=== PATIENT | female | born 1995 | race Caucasian/White ===

== ENCOUNTER 2019-06-06 13:15 | Outpatient (CLI) | payer BC, SELFPAY ==
[2019-06-06 14:06] VITALS: BMI 28.0
--- NOTE | 2019-06-07 08:52 | OB.TRI.NOTE ---
History of Present Illness Date of Service: 06/06/19 Was patient seen by the physician?: No Reason For Visit: R/O LABOR Date of Service: 06/06/19 Final DAFNE: 06/28/19 Final DAFNE Source: LMP Gestational age: 36 6/7 weeks Allergies No Known Allergies Allergy (Verified 03/18/17 23:09) NST - FHR Rate Baby A Baseline: 125 Variability:: Moderate Accelerations:: 15 x 15 Decelerations:: None NST Reactive:: Yes, Appropriate for gestational age FHR Category:: Category I Uterine Activity:: Irritability, no regular contractions Impression/Plan 24-year-old 2 para 1 at 36-6/7 weeks for threatened labor. Patient was reassured that she is not in active labor. Discharged home with routine instructions. Follow-up in the office as scheduled or as needed.
== END 2019-06-06 14:35 | disposition home or self-care (01) ==
LOC: WPOUT 13:45 → WP 13:46
PROVIDERS: Family Provider Family Medicine; PCP Family Medicine; Referring Provider Obstetrics & Gynecology; Visit Provider Obstetrics & Gynecology
DX: O60.03 Preterm labor without delivery, third trimester (principal); Z3A.36 36 weeks gestation of pregnancy
CPT/HCPCS: 59025; 59050; 99218; G0378

== ENCOUNTER 2019-06-07 17:04 | Outpatient (CLI) | payer BC, SELFPAY ==
[2019-06-06 14:06] VITALS: BMI 28.0
[2019-06-07 17:41] VITALS: BMI 26.9
[2019-06-07 18:03] LABS: Mucous, Urine 0 SEEN /hpf (<or=2+)
[2019-06-07 18:04] LABS: Absolute Lymphocyte Count 0.86 X10^3/uL (0.83-4.51); Basophil# 0.01 X10^3/uL; Basophil% 0.1 % (0-1); Hematocrit 32.6 % (37-47); Hemoglobin 10.8 g/dL (12.0-15.0); Lymphocyte # 0.86 X10^3/ul (4.0); Lymphocyte % 7.2 % (19-41); Mean Corp Hgb Conc 33.1 g/dL (32-36); Mean Corpuscular Hgb 29.6 pg (27.0-32.0); Mean Corpuscular Volume 89.3 fL (81-99); Mean Platelet Vol. 9.6 fl (6.2-12.0); Monocyte# 0.97 X10^3/uL; Monocyte% 8.1 % (0-10); NRBC Flagged by Analyzer 0 % (0-5); Neutrophil % 83.8 % (47-70); Platelet Count 122 K/mm3 (150-450); RBC Distribution Width CV 14.3 % (11.6-14.6); RBC Distribution Width SD 46.7 fl (35.1-43.9); Red Blood Count 3.65 M/mm3 (4.2-5.4); White Blood Count 11.9 K/mm3 (4.4-11.0)
[2019-06-07 18:13] LABS: Color, Urine Yellow (Yellow); Glucose, Dipstick Normal (Normal); Leukocyte Esterase-Dipstick 500 /ul (Negative); Nitrite-Dipstick Positive (Negative); Occult Blood-Urine 25 /ul (Negative); Protein-Dipstick 100 mg/dl (Negative); Urine Bilirubin Dipstick Negative (Negative); Urine Clarity Cloudy (Clear); Urine Urobilinogen Normal (Normal)
[2019-06-07 18:15] LABS: Ketone-Dipstick 150 mg/dl (Negative)
[2019-06-07 18:21] LABS: Bacteria 1+ /hpf (None Seen); Red Blood Cells-Urine 0-5 SEEN /hpf (0-5); Squamous Epithelial Cells - UA 10-25 SEEN /hpf (5-10); White Blood Cells >100 SEEN /hpf (0-5)
[2019-06-07] MEDS: Lactated Ringers 1,000 ML 999 ML IV (19:25)
--- NOTE | 2019-06-09 07:26 | OB.TRI.HP_ITS ---
History of Present Illness Date of Service: 06/07/19 Was patient seen by the physician?: No Reason For Visit: R/O PYLEO Date of Service: 06/07/19 Final DAFNE: 06/28/19 Final DAFNE Source: LMP Gestational age: 37 Weeks and 2 Days Allergies No Known Allergies Allergy (Verified 06/07/19 19:01) Laboratory Studies: Laboratory Tests 06/07/19 06/07/19 Range/Units 17:45 17:30 WBC 11.9 H (4.4-11.0) K/mm3 RBC 3.65 L (4.2-5.4) M/mm3 Hgb 10.8 L (12.0-15.0) g/dL Hct 32.6 L (37-47) % MCV 89.3 (81-99) fL MCH 29.6 (27.0-32.0) pg MCHC 33.1 (32-36) g/dL RDW Std Deviation 46.7 H (35.1-43.9) fl RDW Coeff of Radha 14.3 (11.6-14.6) % Plt Count 122 L (150-450) K/mm3 MPV 9.6 (6.2-12.0) fl Immature Gran % (Auto) 0.800 (0.0-0.9) % Neut % (Auto) 83.8 H (47-70) % Lymph % (Auto) 7.2 L (19-41) % [place] % (Auto) 8.1 (0-10) % Eos % (Auto) 0.0 (0-5) % Baso % (Auto) 0.1 (0-1) % Absolute Neuts (auto) 10.0 H (2.0-7.7) X10^3/uL Absolute Lymphs (auto) 0.86 (0.83-4.51) X10^3/uL Nucleated RBC % 0 (0-5) % Urine Color Yellow (Yellow) Urine Clarity Cloudy (Clear) Urine pH 6.0 (5.0 - 8.0) Ur Specific [place] 1.020 (1.002-1.030) Urine Protein 100 H (Negative) mg/dl Urine Glucose (UA) Normal (Normal) mg/dl Urine Ketones 150 H (Negative) mg/dl Urine Occult Blood 25 H (Negative) /ul Urine Nitrite Positive H (Negative) Urine Bilirubin Negative (Negative) mg/dL Urine Urobilinogen Normal (Normal) mg/dl Ur Leukocyte Esterase 500 H (Negative) /ul Urine RBC 0-5 SEEN (0-5) /hpf Urine WBC >100 SEEN (0-5) /hpf Ur Squamous Epith Cells 10-25 SEEN (5-10) /hpf Urine Bacteria 1+ (None Seen) /hpf Urine Mucus 0 SEEN (<or=2+) /hpf NST - FHR Rate Baby A Baseline: 150 Variability:: Moderate Accelerations:: 15 x 15 Decelerations:: None NST Reactive:: Yes FHR Category:: Category I Uterine Activity:: irregular Impression/Plan @ 37.2 wks with Back pain, +UTI 1) 2g rocephin 2) Ivf 3) U culture 4) CBC 5) dc home on keflex 6) afebrile during visit
== END 2019-06-07 21:45 | disposition home or self-care (01) ==
LOC: WPOUT 17:07 → WP 17:08
PROVIDERS: Family Provider Family Medicine; PCP Family Medicine; Referring Provider Obstetrics & Gynecology; Visit Provider Obstetrics & Gynecology
DX: O23.43 Unspecified infection of urinary tract in pregnancy, third trimester (principal); M54.9 Dorsalgia, unspecified; Z3A.37 37 weeks gestation of pregnancy
CPT/HCPCS: 96361; 96365; 36415; 59025; 59050; 81001; 85025; 87086; 87088; 87186; 99218; J7120; G0378; J0696

== ENCOUNTER 2019-07-06 06:50 | Inpatient (IN) | payer BC, SELFPAY ==
[2019-07-06 07:17] VITALS: BMI 27.1
[2019-07-06] MEDS: Lactated Ringers 1,000 ML 150 ML IV (07:30)
[2019-07-06 07:57] LABS: Absolute Lymphocyte Count 1.42 X10^3/uL (0.83-4.51); Absolute Neutrophil Count 5.4 X10^3/uL (2.0-7.7); Basophil# 0.02 X10^3/uL; Basophil% 0.3 % (0-1); Eosinophil# 0.03 X10^3/uL; Eosinophils% 0.4 % (0-5); Hematocrit 32.5 % (37-47); Hemoglobin 10.5 g/dL (12.0-15.0); Lymphocyte # 1.42 X10^3/ul (4.0); Lymphocyte % 19.2 % (19-41); Mean Corp Hgb Conc 32.3 g/dL (32-36); Mean Corpuscular Hgb 28.7 pg (27.0-32.0); Mean Corpuscular Volume 88.8 fL (81-99); Mean Platelet Vol. 9.8 fl (6.2-12.0); Monocyte# 0.47 X10^3/uL; Monocyte% 6.4 % (0-10); NRBC Flagged by Analyzer 0 % (0-5); Neutrophil # 5.39 X10^3/uL (2.7-7.7); Platelet Count 134 K/mm3 (150-450); RBC Distribution Width CV 13.6 % (11.6-14.6); RBC Distribution Width SD 44.5 fl (35.1-43.9); Red Blood Count 3.66 M/mm3 (4.2-5.4); White Blood Count 7.4 K/mm3 (4.4-11.0)
[2019-07-06] MEDS: Oxytocin 30 units/NS 500 ml 30 UNITS/500 ML IV.SOLN IV (08:00)
--- NOTE | 2019-07-06 08:49 | PCM.HP.OB ---
History Date of Admission: 07/06/19 Final DAFNE: 06/28/19 Final DAFNE Source: LMP Gestational age: 41 Weeks and 1 Days History of this : This is a 24 year-old, G [], P [], at 41 weeks gestational age. Allergies No Known Allergies Allergy (Verified 06/07/19 19:01) Home Medications: Home Medications Ferrous Sulfate [Iron] 325 mg PO BID 03/03/17 Vit No.130/Iron/Folic [ Tablet] 1 each PO DAILY 03/03/17 Smoking Status: Former smoker Alcohol: None Number of Fetus(es): 1 NST - FHR Rate Baby A Baseline: 150 Variability:: Moderate Accelerations:: 15 x 15 Decelerations:: Variable NST Reactive:: Yes Uterine Activity:: irritability History Past Pregnancies: Past Pregnancies Delivery Date Name GA/Weeks Outcome Route Weight Gender Labor Length Anesthesia Delivery Location Provider FOB Labs: See [facility] H&P Physical Exam General: Alert, Oriented x3 Abdomen: Soft, Non Tender, Non-Distended, Gravid Neurological: Cranial nerves II-XII grossly intact BUILDING OFFICIAL: Normal external genitalia Estimated gestational size: Appropriate for gestational size Presentation: Cephalic Cervix Dilation (cm): 2 Station: -2 Effacement (%): 70 Assessment/Plan This is a 24 year-old, G 2, P 1001, at 41&2 weeks gestational age. Admit to L&D Induction - on pitocin GBS negative EFW - less than 4500g, patient with adequate pelvis Pain - epidural if desired Routine care
--- NOTE | 2019-07-06 12:47 | PCM.PN.BLA ---
Progress Note S: Patient comfortable with ctxs O: cvx 4/80/-2 AROM clear fluid fhts - 115 with mod variability, accels tocos - Q 2-3 min A&P: continue pitocin
[2019-07-06] MEDS: Nalbuphine 10 MG/ML Ampul IV (14:57)
[2019-07-06] MEDS: Oxytocin 30 units/NS 500 ml 30 UNITS/500 ML IV.SOLN 334 UNITS IV (15:12)
--- NOTE | 2019-07-06 15:40 | PCM.OPRPT ---
Vaginal Delivery Maternal Presentation: Medically Indicated Induction Method of Induction: Pitocin, Amniotomy Medical Reason for Induction: Post term Amniotic Membrane Rupture Type: Artificial Amniotic Fluid Description: Clear Final DAFNE: 06/28/19 Gestational age: 41 Weeks and 1 Days Date of Procedure: 07/06/19 Pre-Operative Diagnosis: Post-dates Post-Operative Diagnosis: Same Surgery/ Procedure Performed: Spontaneous Vaginal Delivery Type of Anesthesia: Local with 1% lidocaine Description of Procedure: Patient in stirrups when c/c/+2. She pushed to deliver head. Shoulders and body easily followed. Infant placed on maternal abdomen where 3VC clamped & cut. Placenta delivered with gentle traction. Good uterine tone obtained. Presentation: JENNYFER Placental Delivery Description: Expressed Placenta Disposition: [facility] Cord Vessel Description: 3 Vessels Cord Entanglement: None Estimated Blood Loss: 350ml A gender: Male - Daniel (1 minute): 8 (5 minute): 9 Episiotomy Description: None Laceration: 1st degree - vaginal - reparied with 3-0 vicryl Medications given after delivery: IV Pitocin Complications: None
[2019-07-06 19:50] VITALS: BP 109/64; PULSE 77; RESP 16; TEMP 36.3
[2019-07-06] MEDS: Acetaminophen 500 MG Tablet 1000 MG PO (22:26)
[2019-07-07 00:20] VITALS: BP 103/71; PULSE 68; RESP 16; TEMP 36.7
[2019-07-07 04:55] VITALS: BP 97/61; PULSE 74; RESP 16; TEMP 37.1
[2019-07-07 08:15] VITALS: BP 100/55; PULSE 83; RESP 16; TEMP 37
--- NOTE | 2019-07-07 09:01 | PCM.PN.OB ---
Subjective: Pain well controlled. Average lochia. No complaints. - Physical Exam General: Alert, Cooperative, No apparent distress Vital Signs Temp Pulse Resp BP 98.8 F 74 16 97/61 07/07/19 04:55 07/07/19 04:55 07/07/19 04:55 07/07/19 04:55 Oxygen Delivery Method Room Air Weight: 71.668 kg Body Mass Index (BMI) 27.1 Finger Stick Blood Glucose 98 Intake and Output for Last 24 Hours 07/05/19 07/06/19 07/07/19 23:59 23:59 23:59 Intake Total 1224.61 / 1224.61 Output Total 1200 / 1200 800 / 800 Balance 24.61 / 24.61 -800 / -800 Laboratory Tests Past 24 Hrs 07/06/19 07:30 Blood Type A POSITIVE Antibody Screen NEGATIVE Medical Necessity - Tobacco Use Smoking Status: Former smoker Assessment/Plan day #1 post vaginal delivery. is breast-feeding and doing well. Patient would like to be discharged home today if okay with pediatrics
--- NOTE | 2019-07-07 09:03 | DCINST_ITS ---
Discharge Diet: No Restrictions Discharge Activity: Return to Normal Activity, May not drive while taking narcotic pain medications., May Shower May resume sexual activity in: 4-6 weeks Additional Activity Instructions:: Nothing in the vagina for 4-6 weeks. You may return to work/school in 6 weeks. Call your doctor if your incision/area has: Continuous Slow Oozing, Sudden Increased Bleeding, Increased Pain/ Swelling, Increased Redness, Foul Smelling Discharge Additional Instructions: If you experience any of the following, contact your healthcare provider. * Bleeding that soaks a pad every hour for 2 hours * Fever 100.4 or higher * Unrelieved incision or abdominal pain * Swelling, redness, discharge or bleeding from your incision or episiotomy site * Your incision begins to separate * Problems urinating (including inability to urinate or burning while urinating). * Visual changes * Severe headache * Flu-like symptoms * Pain or redness in one of both of your breasts * Pain, warmth, tenderness or swelling in your legs, especially the calf area * Frequent nausea and vomiting * Symptoms of depression or anxiety If you experience any of the following, call 911 or go to the nearest Emergency Room. * Chest pain * Problems breathing * Seizure activity * Partial or complete paralysis of a body part, slurred speech, weakness or drooping of the face, or a sudden inability to walk or hold your balance Allergies/Adverse Reactions: Allergies No Known Allergies Allergy (Verified 06/07/19 19:01) Medications to take at Discharge Ferrous Sulfate [Iron] 325 mg PO BID 03/03/17 Vit No.130/Iron/Folic [ Tablet] 1 each PO DAILY 03/03/17 Ibuprofen [Motrin] 600 mg PO Q6H PRN #60 tab 07/07/19 The following prescriptions were given: Ibuprofen [Motrin] 600 mg PO Q6H PRN #60 tab PRN Reason: Pain Transmission Status: Pending to [facility] Please Follow Up With: Jennifer Maria MD - [phone] When: Call to make an appointment with your doctor in 1-2 weeks if needed and 6 weeks Primary Care Physician: Betty Donnelly MD [Primary Care Provider] - Test Results: Test results from this visit will be discussed in further detail at your follow- up appointment, if applicable.
[2019-07-07] MEDS: Ibuprofen 600 MG Tablet PO (10:25)
[2019-07-07 12:15] VITALS: BP 105/55; PULSE 73; RESP 18; TEMP 36.8
[2019-07-07 16:00] VITALS: BP 102/56; PULSE 78; RESP 16; TEMP 36.6
== END 2019-07-07 19:10 | disposition home or self-care (01) | DRG 807 ==
PROVIDERS: Admitting Provider Obstetrics & Gynecology; Family Provider Family Medicine; PCP Family Medicine; Referring Provider Obstetrics & Gynecology; Visit Provider Obstetrics & Gynecology
DX: O48.0 Post-term pregnancy (principal); O76 Abnormality in fetal heart rate and rhythm complicating labor and delivery; O70.0 First degree perineal laceration during delivery; Z87.891 Personal history of nicotine dependence; Z3A.41 41 weeks gestation of pregnancy; Z37.0 Single live birth
CPT/HCPCS: 59025; 59050; 85025; 86850; 86900; 86901; 99218; J7120; G0378

== ENCOUNTER 2021-01-30 07:47 | Day surgery (SDC) | payer BC, SELFPAY ==
--- NOTE | 2021-01-23 08:52 | HP.PCM_ITS ---
History and Physical Date of Admission: 01/30/21
--- NOTE | 2021-01-23 08:52 | PCM.HP.BLA ---
History and Physical Date of Admission: 01/30/21
--- NOTE | 2021-01-23 08:57 | PCM.HP.BLA ---
History and Physical Date of Admission: 01/30/21 ?
--- NOTE | 2021-01-23 10:17 | HP.PCM_ITS ---
History and Physical Pre-Op History and Physical ? HPI: The patient is a 25 year old female presenting for discussion regarding salpingectomy.? Patient reports has 2 living children and does not desire any future childbearing.? Patient currently has the ParaGard IUD and would like it removed with permanent sterilization to follow. ? She is scheduled for laparoscopic Bilateral salpingectomy, for desires sterilization? on 01/30/21.? ?Procedure discussed along with risks, benefits and complications.? Other alternatives discussed for management. Consent form signed? Yes.? PAST MEDICAL HISTORY PAST MEDICAL HISTORY DiagnosisDate ?Anemia? ?Congenital heart defect? 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 PAST SURGICAL HISTORY PAST SURGICAL HISTORY ProcedureLateralityDate ?APPENDECTOMY ? ?INSERTION OF IUD ? CURRENT MEDICATIONS Current Outpatient Medications MedicationSigDispenseRefill ?ibuprofen (MOTRIN) 600 mg tabletTake 1 tablet by mouth every 6 hours as needed for Pain.30 tablet0 ?simethicone, chewable (MYLICON) 80 mg chewable tabletTake 1 tablet by mouth every 6 hours as needed.30 tablet0 ?compr.stocking,thigh,reg,small (COMP.STOCKING,THIGH,REG,SMALL) miscApply thigh high stocking to both Lower extremities, wear throughout day , off at night.1 Each0 ?copper (PARAGARD) 380 square mm intrauterine device1 Intra Uterine Device by INTRAUTERINE route as directed.1 Intra Uterine Device0 ? No current facility-administered medications for this visit. ? ? ALLERGIES: Patient has no known allergies. ? PERSONAL HISTORY:? SOCIAL HISTORY Social History ? Tobacco Use ?Smoking status:Former Smoker ? Years:5.00 ? Quit date:09/20/2015 ? Years since quittin.3 ?Smokeless tobacco:Never Used Vaping Use ?Vaping Use:Never used Substance Use Topics ?Alcohol use:No ?Drug use:Never ?? ? FAMILY HISTORY:? FAMILY HISTORY FAMILY HISTORY? ProblemRelationAge of Onset ?PsychiatryMother? ?ThyroidMother? ?No Known ProblemsFather? ?No Known ProblemsSister? ?No Known ProblemsBrother? ?No Known ProblemsBrother? ?LipidsMaternal Grandmother? ?ArthritisMaternal Grandfather? ?HeartMaternal Grandfather? ?StrokeMaternal Grandfather? ?other (dementia)Maternal Grandfather? ?Breast CancerOther? MGaunt ?Colon CancerOther? MGuncle ?No Known ProblemsPaternal Grandmother? ?No Known ProblemsPaternal Grandfather? ?No Known ProblemsDaughter? ? ? REVIEW OF SYMPTOMS: negative except as noted above ? PHYSICAL EXAMINATION: ? VITALS: Blood pressure 98/60, weight 116 lb (52.6 kg), last menstrual period 01/17/2021, currently . ? GENERAL:? The patient is well nourished, well hydrated in no acute distress.? , The patient is oriented to time, place, and person. NECK: full range of motion? GENITALIA: deferred? ? IMPRESSION: 25yo desires permanent sterilization.? ? PLAN:? ?Laparoscopic bilateral salpingectomy, IUD removal- paragard ? Pt has been counseled on risks/benefits and alternatives of surgery including but not limited to anesthesia, bleeding, infection, injury to pelvic structures including bowel, bladder, ureters and vessels.? Pt wishes to proceed with surge ry at this time. ? Covid testing reviewed ? PRE OP instructions reviewed ? POST OP meds ordered- MOTRIN and MYLICON? ? I have reviewed and updated past medical and surgical history, medications and allergies? Delia Hoffmann MD ? 5:00 PM Assessment & Plan Assessment/Plan (1) Request for sterilization: PLAN: Plan for laparoscopic salpingectomy
[2021-01-30 08:21] VITALS: BP 107/79; PULSE 71; RESP 16; TEMP 36.6; O2SAT 99
[2021-01-30 08:42] LABS: Internal QC Validated? YES +Cl - CLEAR BKGD; Pregnancy, Urine Negative Negative
[2021-01-30 08:43] LABS: Hematocrit 38.7 % (37-47); Mean Corpuscular Hgb 27.1 pg (27.0-32.0); Mean Corpuscular Volume 87.6 fL (81-99); Mean Platelet Vol. 8.9 fl (6.2-12.0); Platelet Count 243 K/mm3 (150-450); RBC Distribution Width CV 12.4 % (11.6-14.6); RBC Distribution Width SD 40.1 fl (35.1-43.9); Red Blood Count 4.42 M/mm3 (4.2-5.4); White Blood Count 4.8 K/mm3 (4.4-11.0)
[2021-01-30] MEDS: Lactated Ringers 1,000 ML 100 ML IV ×2 (08:43→10:16)
--- NOTE | 2021-01-30 09:35 | FALS_PTH ---
PATIENT: JR LASSITER LOC: [facility] [place] U#:[id number] AGE/SX: 25/F ROOM: RE01/30/[address]: Dr. Delia Gayle, MDDOB: 1995 BED: DIS: 01/30/2021 SPEC #: [id number] RECD: 01/30/21 10:37 STATUS: ALANNAH RAI #: [id number] ROSEMARY: 01/30/21 09:[address]: Delia Gayle DEPT: SURGICAL PATHOLOGY RECD BY: Linda Arellano ENTERED: 01/30/21 11:26 SP TYPE: FALL TUBES OTHR DR: Dr. Betty Donnelly MD Tissues: Fallopian tube Procedures: Surgery Specimen Level II HEADER OPERATION: Laparoscopic salpingectomy, removal IUD PRE-OP DIAGNOSIS: Sterilization TISSUE SUBMITTED: Bilateral fallopian tubes MICROSCOPIC DIAGNOSIS Bilateral fallopian tubes, salpingectomy: Bilateral fallopian tubes including fimbrial ends, no pathologic diagnosis. A paratubal cyst. [place]:sabina 01/31/2021 MICROSCOPIC DESCRIPTION Slides are reviewed. GROSS DESCRIPTION Received in fixative is one container labeled with the patient's name and designated bilateral fallopian tubes. The specimen consists of bilateral fallopian tubes including fimbrial ends. One fallopian tube measures 6.5 cm in length and 0.5 cm in diameter. The second fallopian tube is received in two pieces and measures 5.5 cm in length and 0.4 cm in diameter. The fallopian tubes are not identified as right or left. Sections reveal unremarkable cut surfaces. Service Or Work Dispatcher Chief sections are submitted in two cassettes as follows: 1 - intact fallopian tube, 2 - fallopian tube received in two pieces. / [place]:sabina 01/30/21 TC:5 CPT: 49973 x2
[2021-01-30] MEDS: Bupivacaine Mpf 0.5% 30 ML VIAL (09:50)
--- NOTE | 2021-01-30 10:08 | OP.PCM_ITS ---
Problems Associated Problem List Diagnoses (1) Request for sterilization: (2) IUD (intrauterine device) in place: Report of Operation Date of Procedure: 01/30/21 Pre-Operative Diagnosis: desires sterilization, IUD in place Post-Operative Diagnosis: Same Surgery/Procedure Performed:: Removal of Paraguard IUD, Laparoscopic Bilateral salpingectomy Description of Surgical Findings:: Start time: 09 end time 1007 normal ovaries, tubes and uterus. show operations supervisor: None Type of Anesthesia: General and Local Anesthesiologist: Andrew Rivas Special Medications: 0.5% marcaine Specimen's removed: Bilateral Fallopian tubes, paragard IUD Drains: None Estimated Blood Loss (mL): 5cc Fluids Replaced: 1000 Description of Procedure: After informed consent was obtained patient was taken to the operating room she was placed in supine position she was given anesthesia. She was then placed in the [facility] stirrups and she was prepped and draped in normal sterile fashion. Bladder was drained prior to the start of procedure. At this time attention was turned to the vaginal portion where weighted speculum placed at posterior fornix vagina single-tooth tenaculum was used to gently grasp the internal the cervix. IUD removed without difficulty and intact. uterus was gently sounded to approximately 8cm. Uterine manipulator was placed without difficulty. Legs then placed in parallel with the abdomen the tenaculum and the weighted speculum were removed. 2 towel clamps were placed at level of umbilicus. Marcaine was injected infraumbilical and a small incision was made. The 5 mm trocar was placed under direct visualization. CO2 gas was used to insufflate the intra-abdominal cavity. Upon inspection no gross abnormalities appreciated- the uterus tubes and ovaries appeared to be normal. At this time then the LLQ and RLQ ports were placed First Marcaine was injected and small incision was made a knife and the 5 mm trocars were placed. At this time then tubes were traced back to the fimbriated ends. Ligasure was used to coagulate and ligate along mesosalpinx bilaterally until tubes removed completely. Good hemostasis was appreciated. At this time procedure was deemed complete successful. The gas was desufflated on from the intra-abdominal cavity. The trochars were removed. Skin was closed using 4-0 Monocryl in a sumner bcutaneous fashion. Dermabond glue was placed. Instrument lap and needle counts were correct ?2. The uterine manipulator was removed. Vaginal sweep was performed it was negative. There were no complications anticipated normal postoperative course for this patient. Grafts/Implants Used: none Complications none Admit VTE Documentation VTE Present on Admission: Yes VTE Mechan Device Prophylaxis: SCD's VTE Pharm Prophylaxis ordered?: No Reason prophylaxis not ordered:: Procedure Not Indicated
--- NOTE | 2021-01-30 10:12 | PCM.DC ---
Discharge Instructions Diet Discharge Diet: No restrictions Activity Discharge Activity: May not drive while taking narcotic pain medications. and May Shower May resume sexual activity in: 2 weeks Lifting Restrictions: 20-25 lbs Dressing / Incision Call your doctor if your incision/area has: Continuous Slow Oozing, Sudden Increased Bleeding, Increased Pain/ Swelling, Increased Redness, Foul Smelling Discharge and Swelling at the incision site Call your doctor if you observe: Fever of 101 or Higher, Inability to urinate, Inability to have a bowel movement, Using more than one pad per hour and Uncontrolled pain Additional Dressing/Incision Instructions:: You have skin glue over your incision sites, do not pick off. You may shower and let the soap and water run over the incision sites and dab dry. Follow Up Care Please Follow Up With: Delia Gayle MD When: 1-2 weeks post OP if you need an appointment please call [phone] Test Results: Test results from this visit will be discussed in further detail at your follow-up appointment, if applicable. Discharge Plan Admission Attending Provider: Delia Gayle Primary Care Provider: Betty Donnelly Discharge Orders/Prescriptions Prescriptions: No Action NK RF: 0
[2021-01-30 10:24] VITALS: BP 107/79; BP 109/73; PULSE 61; RESP 16; TEMP 36.3; O2SAT 100
[2021-01-30 10:30] VITALS: BP 107/79; BP 109/80; PULSE 65; RESP 16; O2SAT 99
[2021-01-30 10:45] VITALS: BP 105/68; BP 107/79; PULSE 52; RESP 16; O2SAT 100
[2021-01-30 10:49] VITALS: BP 102/72; BP 107/79; PULSE 58; RESP 16; TEMP 36.5; O2SAT 100
[2021-01-30 11:15] VITALS: BP 107/79
== END 2021-01-30 11:21 ==
LOC: SDC 07:48 → AC 07:48
PROVIDERS: PCP Family Medicine; Referring Provider Obstetrics & Gynecology; Visit Provider Obstetrics & Gynecology
PROC: (CPT 58661; principal; 2021-01-30 09:20)
DX: Z30.2 Encounter for sterilization (principal); Z30.432 Encounter for removal of intrauterine contraceptive device; N83.8 Other noninflammatory disorders of ovary, fallopian tube and broad ligament; Z90.49 Acquired absence of other specified parts of digestive tract; Z87.891 Personal history of nicotine dependence; Z20.822 Contact with and (suspected) exposure to COVID-19
CPT/HCPCS: 00840; 58301; 58661; 81025; 85027; 87426; 88302; C9803; J7120; J2405

== ENCOUNTER → 2025-01-22 | Outpatient (CLI) | payer BC, SELFPAY ==
--- NOTE | 2025-01-22 15:06 | VDLE_ITS ---
Reason For Study Reason For Study: Bilateral leg pain RIGHT LEFT CFV is compressible, spontaneous, phasic, competent CFV is compressible, spontaneous, phasic, competent, and demonstrates normal augmentation. and demonstrates normal augmentation. FV is compressible, spontaneous, phasic, competent FV is compressible, spontaneous, phasic, competent and demonstrates normal augmentation. and demonstrates normal augmentation. POP V is compressible, phasic, and INCOMPETENT for POP V is compressible, spontaneous, phasic, competent greater than 1.0 second. and demonstrates normal augmentation. T/P Trunk is compressible. T/P Trunk is compressible. PTV is compressible. PTV is compressible. RT PerV is compressible. LT PerV is compressible. SFJ is competent and measures 0.70 cm. SFJ is INCOMPETENT and measures 0.77 cm. GSV proximal thigh measures 0.48 x 0.47 cm. GSV proximal thigh measures 0.56 x 0.60 cm. GSV at knee measures 0.38 x 0.33 cm. GSV at knee measures 0.34 x 0.38 cm. GSV INCOMPETENT throughout for greater than 0.5 GSV INCOMPETENT throughout for greater than 0.5 seconds. seconds. ASV proximal thigh is INCOMPETENT for greater than ASV prox thigh measures 0.49 cm and is very tortuous. 0.5 seconds and measures 0.33 x 0.37 cm. Wraps Extends from GSV prox thigh to lateral ankle. anterior to lateral part of knee and extends down ASV proximal calf is INCOMPETENT for greater than 0.5 calf. seconds and measures 0.26 x 0.25 cm. ASV distal thigh is INCOMPETENT for greater than 0.5 SSV at junction is competent and measures 0.32 cm. seconds and measures 0.17 x 0.19 cm. Wraps anterior Vein of Giacomini is INCOMPETENT for greater than 0.5 to diane. seconds and measures 0.15 x 0.14 cm. Varicose veins at mid calf extend from ASV distal thigh and connect to SSV distal. SSV at junction is INCOMPETENT for greater than 0.5 seconds and measures 0.90 cm. SSV tooth cutter at 18 cm above medial malleolus is INCOMPETENT for greater than 0.5 seconds. Vein of Giacomini is INCOMPETENT for greater than 0.5 seconds and measures 0.26 x 0.30 cm. Procedure This is a venous duplex using B-mode, color flow and spectral Doppler. Exam performed in department. Patient was scanned in reverse Trendelenburg position during reflux assessment. VL/Venous Duplex US - Jaime Extrem Interpretation Summary Deep veins of the bilateral lower extremities are patent and compressible segme ntally. There is no evidence of bilateral lower extremity deep vein thrombosis. The bilateral great saphenous veins appea r patent and compressible segmentally. Positive for reflux in the right popliteal vein, great saphenous vein throughou t, accessory saphenous vein in the proximal thigh, accessory saphenous vein in the distal thigh, small saphenous v ein, and Vein of Giacomini. Positive for reflux in the left saphenofemoral junction, great saphenous vein t hroughout, accessory saphenous vein in the calf, and Vein of Giacomini. Ordering Physician: Almaz Macdonald Referring Physician: Betty Donnelly M.D. Performed By: Jaycee Sanchez RVT
== END | disposition home or self-care (01) ==
LOC: CVS 15:05
PROVIDERS: PCP Family Medicine; Referring Provider Physician Assistant; Visit Provider Physician Assistant
DX: M79.604 Pain in right leg (principal); M79.605 Pain in left leg; I87.2 Venous insufficiency (chronic) (peripheral)
CPT/HCPCS: 93970

== ENCOUNTER 2025-03-01 08:18 | Day surgery (SDC) | payer BC, SELFPAY ==
[2025-02-28 08:45] VITALS: BMI 21.9
--- OUTSIDE RECORDS SUMMARY | 2025-03-01 09:05 | XMS RPT_ITS | CCD ---
Author Organization [facility] Care Team Providers Care Lunchroom Food Service Supervisor Name Role Phone Unavailable Primary Care Provider Unavailkhris e Cony SOLIZ, Dr. Betty Rizzo Primary Care Provider [phone] Dr. Betty Donnelly MD Referring Provider [phone] Amlaz Castro Attending Provider Renae PIERSON, Almaz Referring Provider Dr. Lopez Whiteside MD Attending Provider [phone] Macdonald, Almaz Attending Unavailable Betty Donnelly S Referring Unavailable Joyesika, Betty S Primary Care Unavailable Macdonald, Almaz Referring Unavailable Lopez Whiteside Attending Unavailable Jollkuldip, Betty S Primary Care Unavailable Macdonald, Almaz Referring Unavailable Macdonald, Almaz Attending Unavailable Cony, Betty S Primary Care Unavailable Lopez Whiteside Attending Unavailable Betty Donnelly Primary Care Unavailable Medications Completed/Discontinued Medications Medication Drug Class(es) Dates Sig (Normalized) Sig (Original) compr.stocking,thi gh,reg,small (COMP.STOCKING,THI GH,REG,SMALL) misc (4 sources) Start: 12-24-2020 compr.stocking,thi gh,reg,small (COMP.STOCKING,THI GH,REG,SMALL) misc Apply thigh high stocking to both Lower extremities, wear throughout day , off at night. 1 Each 0 12/24/2020 Active Comment on above: Apply thigh high sto cking to both Lower extremities, wear throughout day , off at night. copper 313 mg drug implant (1 source) Copper-containing Intrauterine Device Start: 09-06-2019 End: 02-13-2022 copper (PARAGARD) 380 square mm intrauterine device Indications: Encounter for IUD insertion 1 Intra Uterine Device by INTRAUTERINE route as directed. 1 Intra Uterine Device 0 09/06/2019 02/13/2022 Discontinued Comment on above: 1 Intra Uterine Alma ce by INTRAUTERINE route as directed. ibuprofen 600 mg oral tablet (4 sources) Nonsteroidal Anti-inflammatory Drug Start: 01-21-2021 take 1 tablet by mouth every six hours as needed ibuprofen (MOTRIN) 600 mg tablet Take 1 tablet by mouth every 6 hours as needed for Pain. 30 tablet 0 01/21/2021 Active Comment on above: Take 1 tablet by low th every 6 hours as needed for Pain. simethicone 80 mg chewable tablet (1 source) Start: 01-21-2021 End: 02-13-2022 take 1 tablet by mouth every six hours as needed simethicone, chewable (MYLICON) 80 mg chewable tablet Take 1 tablet by mouth every 6 hours as needed. 30 tablet 0 01/21/2021 02/13/2022 Discontinued Comment on above: Take 1 tablet by low th every 6 hours as needed. Problems Active Problems Problem Classification Problem Date Documented Date Episodic/Chronic Contraceptive and procreative management (2 sources) Intrauterine contraceptive device in situ; Translations: [Presence of (intrauterine) contraceptive device] 01-30-2021 Episodic Immunizations and screening for infectious disease (1 source) Patient encounter status; Translations: [Encounter for screening for human papillomavirus (HPV)] Episodic Influenza (1 source) Influenza-like illness; Translations: [Influenza due to unidentified influenza virus with other respiratory manifestations] Episodic Nonmalignant breast conditions (2 sources) Pain of breast; Translations: [Mastodynia] Episodic Other complications of (4 sources) Anemia in mother complicating , childbirth AND/OR puerperium; Translations: [Anemia complicating , third trimester] Onset: 04-24-2019 04-24-2019 Chronic Other connective tissue disease (1 source) Pain in right leg; Translations: [Pain in right leg] Onset: 01-25-2025 Episodic Other diseases of veins and lymphatics (1 source) Vascular insufficiency; Translations: [Venous insufficiency (chronic) (peripheral)] 12-29-2024 Episodic Other diseases of veins and lymphatics (1 source) Venous insufficiency (chronic) (peripheral); Translations: [Venous insufficiency (chronic) (peripheral)] Onset: 01-08-2025 Episodic Other screening for suspected conditions (not mental disorders or infectious disease) (1 source) Cancer cervix screening status; Translations: [Encounter for screening for malignant neoplasm of cervix] Episodic Varicose veins of lower extremity (4 sources) Varicose veins of lower extremity; Translations: [Varicose veins of unspecified lower extremity with pain] Onset: 01-08-2025 12-29-2024 Episodic Past or Other Problems Problem Classification Problem Date Documented Da te Episodic/Chronic Other complications of (4 sources) Nausea and vomiting; Translations: [Vomiting of , unspecified] Onset: 11-24-2018 11-24-2018 Episodic Residual codes; unclassified (4 sources) FH: Congenital heart disease; Translations: [Family history of other congenital malformations, deformations and chromosomal abnormalities] Onset: 08-06-2016 11-24-2018 Episodic Residual codes; unclassified (4 sources) History of exposure to lead; Translations: [Contact with and (suspected) exposure to lead] Onset: 11-24-2018 11-24-2018 Episodic Results Test Name Value Interpretation Reference Range Facil ity Venous Duplex US - Jaime Extre mon 01-22-2025 Venous Duplex US - Jaime Extrem [facility] [address] [place] [address] Venous Duplex US - Jaime Extrem 01/22/25 1509 MR#: [id number] Acct: [id number] Name: LASSITERNOHELIA E Rep #: [id number] : 1995 29 From: Lopez Whiteside MD Attending Dr: DANGELO Oliveira Status: REG CLI Ordering Dr: Almaz Macdonald Date: 01/22/25 Location: [facility] Sex: F C Admitted: Reason For Study Reason For Study: Bilateral leg pain RIGHT LEFT CFV is compressible, spontaneous, phasic, competent CFV is compressible, spontaneous, phasic, competent, and demonstrates normal augmentation. and demonstrates normal augmentation. FV is compressible, spontaneous, phasic, competent FV is compressible, spontaneous, phasic, competent and demonstrates normal augmentation. and demonstrates normal augmentation. POP V is compressible, phasic, and INCOMPETENT for POP V is compressible, spontaneous, phasic, competent greater than 1.0 second. and demonstrates normal augmentation. T/P Trunk is compressible. T/P Trunk is compressible. PTV is compressible. PTV is compressible. RT PerV is compressible. LT PerV is compressible. SFJ is competent and measures 0.70 cm. SFJ is INCOMPETENT and measures 0.77 cm. GSV proximal thigh measures 0.48 x 0.47 cm. GSV proximal thigh measures 0.56 x 0.60 cm. GSV at knee measures 0.38 x 0.33 cm. GSV at knee measures 0.34 x 0.38 cm. GSV INCOMPETENT throughout for greater than 0.5 GSV INCOMPETENT throughout for greater than 0.5 seconds. seconds. ASV proximal thigh is INCOMPETENT for greater than ASV prox thigh measures 0.49 cm and is very tortuous. 0.5 seconds and measures 0.33 x 0.37 cm. Wraps Extends from GSV prox thigh to lateral ankle. anterior to lateral part of knee and extends down ASV proximal calf is INCOMPETENT for greater than 0.5 calf. seconds and measures 0.26 x 0.25 cm. ASV distal thigh is INCOMPETENT for greater than 0.5 SSV at junction is competent and measures 0.32 cm. seconds and measures 0.17 x 0.19 cm. Wraps anterior Vein of Giacomini is INCOMPETENT for greater than 0.5 to diane. seconds and measures 0.15 x 0.14 cm. Varicose veins at mid calf extend from ASV distal thigh and connect to SSV distal. SSV at junction is INCOMPETENT for greater than 0.5 seconds and measures 0.90 cm. SSV hotel or motel receptionist at 18 cm above medial malleolus is INCOMPETENT for greater than 0.5 seconds. Vein of Giacomini is INCOMPETENT for greater than 0.5 seconds and measures 0.26 x 0.30 cm. Procedure This is a venous duplex using B-mode, color flow and spectral Doppler. Exam performed in department. Patient was scanned in reverse Trendelenburg position during reflux assessment. VL/Venous Duplex US - Jaime Extrem Interpretation Summary Deep veins of the bilateral lower extremities are patent and compressible segmentally. There is no evidence of bilateral lower extremity deep vein thrombosis. The bilateral great saphenous veins appear patent and compressible segmentally. Positive for reflux in the right popliteal vein, great saphenous vein throughout, accessory saphenous vein in the proximal thigh, accessory saphenous vein in the distal thigh, small saphenous vein, and Vein of Giacomini. Positive for reflux in the left saphenofemoral junction, great saphenous vein throughout, accessory saphenous vein in the calf, and Vein of Giacomini. Ordering Physician: Almaz Macdonald Referring Physician: Betty Donnelly M.D. Performed By: Jaycee Sanchez RVAlin 01/22/251747 Date Lopez Whiteside MD CC: DANGELO Oliveira; Dr. Betty Donnelly MD Date Dictated: 01/22/25 150 Date Transcribed: 01/22/251747 Three Knife Trimmer: Signed Normal [facility] Venous duplex ultrasound rep ortOrdered By: Lopez Whiteside on 01-22-2025 US Vein [facility] [address] [place] [address] Venous Duplex US - Jaime Extrem 01/22/25 150 MR#: [id number] Acct: [id number] Name: NOHELIA LASSITER Rep #:[id number] : 1995 29 From: Lopez Juan Attending Dr: DANGELO Oliveira Stat us: REG CLI Ordering Dr: Almaz Macdonald Date: Location: CVS Sex: F C Admitted: Reason For Study Reason For Study: Bilateral leg pain RIGHT LEFT CFV is compressible, spontaneous, phasic, competent CFV is compressible, spontaneous, phasic, competent, and demonstrates normal augmentation. and demonstrates normal augmentation. FV is compressible, spontaneous, phasic, competent FV is compressible, spontaneous, phasic, competent and demonstrates normal augmentation. and demonstrates normal augmentation. POP V is compressible, phasic, and INCOMPETENT for POP V is compressible, spontaneous, phasic, competent greater than 1.0 second. and demonstrates normal augmentation. T/P Trunk is compressible. T/P Trunk is compressible. PTV is compressible. PTV is compressible. RT PerV is compressible. LT PerV is compressible. SFJ is competent and measures 0.70 cm. SFJ is INCOMPETENT and measures 0.77 cm. GSV proximal thigh measures 0.48 x 0.47 cm. GSV proximal thigh measures 0.56 x 0.60 cm. GSV at knee measures 0.38 x 0.33 cm. GSV at knee measures 0.34 x 0.38 cm. GSV INCOMPETENT throughout for greater than 0.5 GSV INCOMPETENT throughout for greater than 0.5 seconds. seconds. ASV proximal thigh is INCOMPETENT for greater than ASV prox thighmeasures 0.49 cm and is very tortuous. 0.5 seconds and measures 0.33 x 0.37 cm. Wraps Extends from GSV prox thigh to lateral ankle. anterior to lateral part of knee and extends down ASV proximal calf is INCOMPETENT for greater than 0.5 calf. seconds and measures 0.26 x 0.25 cm. ASV distal thigh is INCOMPETENT for greater than 0.5 SSV at junction is competent and measures 0.32 cm. seconds and measures 0.17 x 0.19 cm. Wraps anterior Vein of Giacomini is INCOMPETENT for greater than 0.5 to diane. seconds and measures 0.15 x 0.14 cm. Varicose veins at mid calf extend from ASV distal thigh and connect to SSV distal. SSV at junction is INCOMPETENT for greater than 0.5 seconds and measures 0.90 cm. SSV hotel or motel receptionist at 18 cm above medial malleolus is INCOMPETENT for greater than 0.5 seconds. Vein of Giacomini is INCOMPETENT for greater than 0.5 seconds and measures 0.26 x 0.30 cm. Procedure This is a venous duplex using B-mode, color flow and spectral Doppler. Exam performed in department. Patient was scanned in reverse Trendelenburg position during reflux assessment. VL/Venous Duplex US - Jaime Extrem Interpretation Summary Deep veins of the bilateral lower extremities are patent and compressible segmentally. There is no evidence of bilateral lower extremity deep vein thrombosis. The bilateral great saphenous veins appearpatent and compressible segmentally. Positive for reflux in the right popliteal vein, great saphenous vein throughout, accessory saphenous vein in the proximal thigh, accessory saphenous vein in the distal thigh, small saphenous vein, and Vein of Giacomini. Positive for reflux in the left saphenofemoral junction, great saphenous vein throughout, accessory saphenous vein in the calf, and Vein of Giacomini. Ordering Physician: Almaz Macdonald Referring Physician: Betty Donnelly M.D. Performed By: Jaycee Sanchez RVT 01/22/251747 Date _ Lopez Whiteside MD CC: DANGELO Oliveira; Dr. Betty Donnelly MD ~ Date Dictated: 01/22/25 1509 Date Transcribed: 01/22/251747 Three Knife Trimmer: Signed [facility] Work Phone: MR/Gisell 12-29-2024 /ADDIE [facility] [address] [place] [address] OFFICE VISIT Date of Service: 12/29/24 MR#: [id number] Acct: [id number] Name: NOHELIA LASSITER Rep #: [id number] : 1995 Provider: DANGELO Oliveira Age/Sex: 29/F Location: [facility] Status: Signed with Addenda ADDENDUM by DANGELO Oliveira on 01/26/25 at 1314 Intake Allergies No Known Allergies Allergy (Verified 12/29/24 15:25) Assessment and Plan Assessment and Plan (1) Varicose veins of leg with pain: Status: Acute Orders: Orders Venous Duplex US - Jaime Extrem 01/22/25 I83.819 - Varicose veins of unspecified lower extremity with pain, I87.2 - Venous insufficiency (chronic) (peripheral) Plan She completed venous reflux study on 01/22/25: Positive for reflux in the right popliteal vein, great saphenous vein throughout, accessory saphenous vein in the proximal thigh, accessory saphenous vein in the distal thigh, small saphenous vein, and Vein of Giacomini. Positive for reflux in the left saphenofemoral junction, great saphenous vein throughout, accessory saphenous vein in the calf, and Vein of Giacomini. Her most symptomatic varicosities are in her L thigh, likely the tortuous ASV noted on duplex which is fed by GSV. I recommend L saphenous vein chemical adhesive ablation. I called and discussed this with Nohelia over the phone and she does wish to proceed with this. 01/26/25 1314 Date Almaz Macdonald cc: Dr. Betty Donnelly MD * Signed Intake Vital Signs 01/30/21 08:21 12/29/24 15:21 Height 5 ft 4 in Weight: 128 lb BP 117/75 Blood Pressure Location Rt brachial Position Sitting Respiration 16 Pulse 85 Pulse Source Monitor Temp 99.3 F H Temp Source Temporal Pulse Oximetry (%) 99 Oxygen Delivery Method room air Intake Visit Reasons: Varicose Veins Is patient in pain?: Yes (left leg) Allergies No Known Allergies Allergy (Verified 12/29/24 15:25) Is last menstrual period known: Yes Post menopausal: No Patient : No Have you fallen in the past year?: No PFSH Medical History Anemia Former smoker Surgical History Hx of appendectomy Family History (Updated 12/29/24 @ 15:21 by Betty Escoto MA) Father Asthma Mother Cancer Thyroid disorder Social History Smoking Status: Former smoker HPI HPI HPI: NOHELIA LASSITER, is a 29 F who presents to the office today for evaluation of painful varicose veins. She has bilateral lower extremity varicose veins which are most bothersome in her LLE. She has had her R calf varicosity since she was 10 but this has been mildly symptomatic. With , she developed L thigh and calf varicosities which have been progressively symptomatic with aching, burning discomfort and heaviness sensation. She has been wearing thigh-high measured compression stockings for the last few years as well as leg elevation at rest and regular exercise without improvement in her symptoms. She also has had some recurrent episodes of phlebitis in the L thigh/calf varicosities. She denies any history of DVT or PE. She has not had any prior venous interventions. She has not had any recent imaging. She denies any significant lower extremity edema, persistent pelvic or flank pain pain, pelvic varicosities, hematuria, ROS General General: No weight change, appetite, fatigue, colon cancer, breast cancer or weakness HEENT HEENT: No difficulty swallowing, eye injury, eye surgery, swollen glands or hoarseness Endo Endocrine: No thyroid disease, diabetes mellitus, thyroid cancer, Hair loss, heat intolerance or cold intolerance Skin Skin: No rash or changing moles Musc Musculoskeletal: No back problems, arthritis, rheumatoid arthritis, gout or joint pain Cardio Cardiovascular: No murmur, pacemaker, heart disease, atrial fibrillation, high blood pressure, heart attack, heart stent, palpitations, shortness of breath with exertion or chest pain Psych Psychiatric: No depression, anxiety or hearing voices Resp Respiratory: No shortness of breath, No sleep apnea, No cough, No COPD, No asthma, No emphysema and No wheezing Gastro Gastrointestinal: No abdominal pain, No nausea or vomiting, No diarrhea, No constipation, No blood in stool, No acid reflux, No hemorrhoids, No ulcers, No gallbladder problem and No black,tarry stools Den Hematologic: No blood thinners, No blood disorders, No bleeding, No anemia and No blood clots Neuro Neurologic: No system reviewed and no additional complaints, except as documented, No as per HPI, No abnormal gait, No abnormal hearing, No abnormal movements, No abnormal speech, No behavioral (more content not included)... Normal [facility] Influenza virus A and B RNA and SARS-CoV-2 (COVID-19) N gene panel ANICETO+probe (Resp)on 09-11-2022 FLUAV RNA ANICETO+probe Ql (Unsp spec) Positive Abnormal Negative for Influenza A by RT-PCR [facility] FLUBV RNA ANICETO+probe Ql (Unsp spec) Negative Negative for Influenza B by RT-PCR [facility] SARS-CoV-2 (COVID-19) RNA ANICETO+probe Ql (Resp) SARS-CoV-2 (Agent of COVID-19) Not Detected by RT-PCR or equivalent method. Not Detected [facility] JEANNE OSVALDOG W PILLO LTon 022 [facility] Vital Signs Date Time Vital Sign Value Performing Clinician Faci lity 12-29-2024 15:21-0400 Body temperature 99.3 [degF] Dr. Betty Donnelly MD Work Phone: [facility] 12-29-2024 15:21-0400 Body weight 58.[address] Betty Donnelly MD Work Phone: [facility] 12-29-2024 15:21-0400 Diastolic blood pressure 75 mm[Hg] Dr. Betty Donnelly MD Work Phone: [facility] 12-29-2024 15:21-0400 Heart rate 85 /min Dr. Betty Donnelly MD Work Phone: [facility] 12-29-2024 15:21-0400 Respiratory rate 16 /min Dr. Betty Donnelly MD Work Phone: [facility] 12-29-2024 15:21-0400 SaO2% (BldA) [Mass fraction] 99 % Dr. Betty Donnelly MD Work Phone: [facility] 12-29-2024 15:21-0400 Systolic blood pressure 117 mm[Hg] Dr. Betty Donnelly MD Work Phone: [facility] 09-10-2022 07:35-0500 Body temperature 98.1 [degF] Bryan Kamara APRN.DISPATCHER RELAY Work Phone: [facility] 09-10-2022 07:35-0500 Body weight 52.62 kg Bryan Asad MEDICAL CLAIMS SPECIALIST.DISPATCHER RELAY Work Phone: [facility] 09-10-2022 07:35-0500 Diastolic blood pressure 78 mm[Hg] Bryan Asad MEDICAL CLAIMS SPECIALIST.DISPATCHER RELAY Work Phone: [facility] 09-10-2022 07:35-0500 Heart rate 128 /min Bryan Asad MEDICAL CLAIMS SPECIALIST.DISPATCHER RELAY Work Phone: [facility] 09-10-2022 07:35-0500 Respiratory rate 16 /min Bryan Asad MEDICAL CLAIMS SPECIALIST.DISPATCHER RELAY Work Phone: [facility] 09-10-2022 07:35-0500 SaO2% (BldA) [Mass fraction] 100 % Bryan Asad MEDICAL CLAIMS SPECIALIST.DISPATCHER RELAY Work Phone: [facility] 09-10-2022 07:35-0500 Systolic blood pressure 124 mm[Hg] Bryan Asad MEDICAL CLAIMS SPECIALIST.DISPATCHER RELAY Work Phone: [facility] 02-13-2022 15:56-0400 Body height 163.8 cm Susan Rockford MEDICAL CLAIMS SPECIALIST.DISPATCHER RELAY Work Phone: [facility] 02-13-2022 15:56-0400 Body weight 53.07 kg Susan Wesly MEDICAL CLAIMS SPECIALIST.DISPATCHER RELAY Work Phone: [facility] 02-13-2022 15:56-0400 Diastolic blood pressure 64 mm[Hg] Susan Wesly MEDICAL CLAIMS SPECIALIST.DISPATCHER RELAY Work Phone: [facility] 02-13-2022 15:56-0400 Systolic blood pressure 112 mm[Hg] Susan Wesly MEDICAL CLAIMS SPECIALIST.DISPATCHER RELAY Work Phone: [facility] Encounters Encounter Date Encounter Type Care Provider Facility Start: 03-01-2025 ambulatory Lopez Whiteside Facility:[facility] Start: 01-22-2025 Non-patient / Non-visit Dr. Lopez morillo [facility] Start: 01-22-2025 End: 01-22-[address] Betty Donnelly MD Work Phone: [facility] Work Phone: Start: 01-22-2025 End: 01-22-2025 Patient encounter procedure Almaz PIERSON -Cardiovascular Services Work Phone: Start: 01-22-2025 End: 01-22-2025 ambulatory lAmaz Macdonald Facility:[facility] Start: 12-29-2024 End: 12-29-2024 Patient encounter procedure Almaz PIERSON -[facility] Work Phone: Start: 12-29-2024 End: 12-29-2024 ambulatory [facility] Facility:[facility] Start: 09-11-2022 Telephone encounter So moreno PA-C Work Phone: [facility] Comment on above: Results Start: 09-10-2022 End: 09-10-2022 ambulatory Facility:[facility] Start: 09-10-2022 End: 09-10-2022 Patient encounter procedure Bryan Kamara APRN.CNP Work Phone: [facility] Comment on above: Influenza-like illne ss (Primary Dx) Start: 02-18-2022 End: 02-18-2022 Subsequent hospital visit by physician Diagnostic Mammo [facility] Mammogram Start: 02-13-2022 End: 02-13-2022 Patient encounter procedure Susan Jarrell APRN.DISPATCHER RELAY Work Phone: OB/Gynecology Comment on above: Encounter for gyneco logical examination (general) (routine) without abnormal findings (Primary Dx); Screening for cervical cancer; Encounter for screening for human papillomavirus (HPV); Breast pain Start: 02-13-2022 End: 02-13-2022 Patient encounter status Susan Jarrell APRN.DISPATCHER RELAY Work Phone: OB/Gynecology Procedures Date Procedure Procedure Detail Performing Clinician Start: 09-10-2022 COVID WITH FLUA+B, ROUTINE Bryan Kamara APRN.DISPATCHER RELAY Work Phone: Start: 02-18-2022 JEANNE Cavazos APRN.DISPATCHER RELAY Work Phone: Plan of Treatment Date Care Activity Detail Author Start: 04-21-2029 Urine microalbumin profile DTAP,TDAP,TD (3 - Td or Tdap) [facility] Start: 02-13-2025 PAP TESTING PAP TESTING [facility] Start: 05-21-2022 Influenza vaccination C [facility] Start: 11-24-2021 PAP TESTING PAP TESTING [facility] Start: 09-20-2021 DEPRESSION ASSESSMENT DEPRESSION ASS ESSMENT [facility] Start: 06-25-2021 COVID-19 VACCINE (3 - Booster for Moderna series) COVID-19 VACCINE (3 - Booster for Moderna series) [facility] Start: 03-20-2021 COVID-19 VACCINE (3 - Booster for Moderna series) COVID-19 VACCINE (3 - Booster for Moderna series) [facility] Start: 2005 Adult depression screening assessment DEPRESSION SCREENING [facility] Start: 1995 HEPATITIS B (1 of 3 - 3-dose series) HEPATITIS B (1 of 3 - 3-dose series) [facility] End: 03-15-2023 Diagnostic mammography computer-aided detcj uni JEANNE DIAGNOSTIC LT Radiology Routine Breast pain 1 Occurrences starting 02/13/2022 until 03/15/2023 [facility] Work Phone: Comment on above: 1 Occurrences starti ng 02/13/2022 until 03/15/2023 PAP FLUID CERVICAL SCREENING PAP FLUID CERVICAL SCREENING Lab Routine Screening for cervical cancer Encounter for screening for human papillomavirus (HPV) Ordered: 02/13/2022 [facility] Work Phone: Comment on above: Ordered: 02/13/2022 End: 03-15-2023 Us breast uni real time with image limited US BREAST LTD LT Radiology Routine Breast pain 1 Occurrences starting 02/13/2022 until 03/15/2023 [facility] Work Phone: Comment on above: 1 Occurrences starti ng 02/13/2022 until 03/15/2023 [facility] Immunizations Immunization Date Immunization Notes Care Provider Estela briseno 04-21-2019 Diptheria,Tetanus,Pe rtu ssis Vaccine Dr. Betty Donnelly MD Work Phone: [facility] 04-21-2019 tetanus toxoid, redu tatianna diphtheria toxoid, and acellular pertussis vaccine, adsorbed Susan Wesly MEDICAL CLAIMS SPECIALIST.DISPATCHER RELAY Work Phone: [facility] 12-29-2016 tetanus toxoid, redu tatianna diphtheria toxoid, and acellular pertussis vaccine, adsorbed Susan Wesly MEDICAL CLAIMS SPECIALIST.DISPATCHER RELAY Work Phone: [facility] Payers Date Payer Category Payer Self-pay 2024 Unknown [id number] 2021 Private Health Insurance LUIZ VALENTINE OAP [id number] 2021-Present [phone] [address] [place] [address] Open Access [id number] 2021 Private Health Insurance [id number] 2018 Unknown NELSY ESPINOZA PPO [id number] 2018-Present [phone] [address] [place] [address] PPO [id number] Unknown [id number] Unknown [id number] Unknown [id number] Unknown [id number] Social History Date Type Detail Facility Start: 08-06-2016 End: 01-23-2021 Tobacco smoking status NHIS Ex-smoker [facility] Work Phone: End: 09-20-2015 History of tobacco use Current smoker [facility] Work Phone: Start: 08-06-2016 End: 09-01-2018 Tobacco use and exposure Smokeless tobacco non-user [facility] Work Phone: Start: 02-13-2022 End: 09-10-2022 Alcohol intake Current non-drinker of alcohol (finding) [facility] Start: 1995 Sex Assigned At Not on file [facility] Start: 02-03-2022 End: 02-18-2022 Exposure to SARS-CoV-2 (event) Not sure [facility] Work Phone: End: 09-20-2015 History of tobacco use Cigarette Smoker [facility] Start: 07-06-2019 Alcohol Alcohol [facility] Start: 01-23-2021 Tobacco Use Tobacco Use [facility] Start: 1995 Sex Assigned At Female W [facility] Clinical Notes 11-24-2018 to 12-29-2024 Note Date & Type Note Facility 12-29-2024 Evaluation note Diagnosis Onset Date Resolution Varicose veins of leg with pain acute December 29, 2024 3:00pm [facility] Work Phone: [phone] Miscellaneous Notes* Telephone Encounter - Emperatriz London LPN - 09/11/2022 8:23 AM EST Phone call placed patient advised (see prior provider encounter) Patient verbalized understanding, agreed with plan of care. Emperatriz London LPN * Telephone Encounter - So Zambrano PA-C - 09/11/2022 7:17 AM EST Please call and let patient know she tested positive for influenza A. Continue supportive care oerrwldt-epj-gadoblx medications. If not improving over the next 3 to 5 days follow-up with PCP documented in this encounterC[facility] History of Present illness Narrative* Bryan Kamara APRN.DISPATCHER RELAY - 09/10/2022 7:48 AM EST Subjective HPI HPI Nohelia Lassiter is a 27 year old female who presents today for CC of cough, fever, st, chills. This started 1 day ago. Has tried otc medication for relief. Symptoms are worsened by nothing. Risk factors sick exposures at work and home. Denies possibility of being . nonsmoker. .Patient presents with: Fever: Pt reported sore throat, cough x1 day. PAST MEDICAL HISTORY Diagnosis Date Anemia Congenital heart defect Hole in heart. Closed on own, no surgical correction Hypoglycemia PAST SURGICAL HISTORY Procedure Laterality Date APPENDECTOMY INSERTION OF IUD SALPINGECTOMY Bilateral 01/30/2021 Laporascopic, IUD removal ALLERGIES Patient has no known allergies. MEDICATIONS ibuprofen (MOTRIN) 600 mg tablet Take 1 tablet by mouth every 6 hours as needed for Pain. compr.stocking,thigh,reg,small (COMP.STOCKING,THIGH,REG,SMALL) misc Apply thigh high stocking to both Lower extremities, wear throughout day , off at night. FAMILY HISTORY Problem Relation Age of Onset Psychiatry Mother Thyroid Mother No Known Problems Father No Known Problems Sister No Known Problems Brother No Known Problems Brother Lipids Maternal Grandmother Arthritis Maternal Grandfather Heart Maternal Grandfather Stroke Maternal Grandfather other (dementia) Maternal Grandfather Breast Cancer Other MGaunt Colon Cancer Other MGuncle No Known Problems Paternal Grandmother No Known Problems Paternal Grandfather No Known Problems Daughter Social History Tobacco Use Smoking status: Former Years: 5.00 Types: Cigarettes Quit date: 09/20/2015 Years since quittin.9 Smokeless tobacco: Never Vaping Use Vaping Use: Never used Substance Use Topics Alcohol use: No Drug use: Never ROS Objective Blood pressure 124/78, pulse (!) 128, temperature 36.7 C (98.1 F), resp. rate 16, weight 52.6 kg (116 lb), SpO2 100 %, currently . Physical Exam Constitutional: General: She is not in acute distress. Appearance: She is not toxic-appearing or diaphoretic. HENT: Head: Normocephalic and atraumatic. Cardiovascular: Rate and Rhythm: Normal rate and regular rhythm. Heart sounds: Normal heart sounds, S1 normal and S2 normal. Pulmonary: Effort: Pulmonary effort is normal. Breath sounds: Normal breath sounds. Lymphadenopathy: Cervical: No cervical adenopathy. Right cervical: No superficial cervical adenopathy. Left cervical: No superficial cervical adenopathy. Neurological: Mental Status: She is alert and oriented to person, place, and time. Gait: Gait is intact. ASSESSMENT/PLAN: 1. Influenza-like illness - ICD9: 487.1, ICD10: J11.1 -discussed expected course -discussed supportive care -discussed red flags and reasons for f/u -discussed contagiousness, reason/when close family members should f/u, and whom to avoid -f/u in 3-5 days if symptoms worsening - COVID WITH FLUA+B, ROUTINE Bryan Kamara APRN.CNP documented in this encounterC[facility]06[facility] History of Present illness Narrative* RT Jefferson(R) - 02/18/2022 3:15 PM EDT Radiology Service Progress Note PATIENT NAME: Nohelia Lassiter DATE OF SERVICE: February 18, 2022 TIME: 3:26 PM PATIENT IDENTITY VERIFICATION COMPLETED USING TWO (2) IDENTIFIERS: Name and Date of confirmedby patient verbally. FALL SCREENING: Has the patient had 2 falls in the last year or 1 fall with injury or currently using an Ambulatory Assistive Device (Walker, Cane, Wheelchair, Crutches, etc.)? No PATIENT GENDER DATA: Female. status: : No status: NO. PATIENT RELEVANT IMPLANT DATA REVIEWED: Not Applicable RADIOLOGY DEPARTMENT: Mammography PERIPHERAL IV DATA: Not applicable SIGNED BY: RT Jefferson(R) February 18, 2022 3:26 PM documented in this encounterC[facility]-27[facility] Instructions* Patient Instructions* Susan Jarrell APRN.CNP - 02/13/2022 4:17 PM EDT Management of Benign Breast Pain / Fibrocystic Changes Decrease or avoid intake of caffeine, including coffee, teas, sodas, and chocolate. Decrease or avoid nicotine. Wear a support or sports (not underwire) bra. Take rwvd-iva-eafmofm ibuprofen (Advil/Motrin) or other NSAIDs, such as naproxen (Aleve). Take 3 grams (3000 mg.) of evening primrose oil (available synh-bgw-qbdvdsg) in divided doses for 2months. Take warm showers. Use warm compresses. documented in this encounterC[facility]05-27-[facility] History of Present illness Narrative* Susan Jarrell APRN.CNP - 02/13/2022 3:55 PM EDT Nohelia is a 26 year old who presents for an annual gynecologic exam with complaints, left breast pain that started about 2 months ago. Menses: cycles every 25-30 days and 4 days of flow. Contraception: tubal sterilization HPV vaccine: Yes Last Pap: 11/30/2018 normal HPV: N/A History of abnormal pap: No Last mammogram: never Sexually active: Yes Pain with intercourse: No Postcoital bleeding: No OB History T2 L2 SAB0 IAB0 Ectopic0 Multiple0 Live Births2 Asset Recovery Specialist History LMP: 02/02/2022, Having periods Age at Menarche: Age at First : Age at Menopause: Asset Recovery Specialist History Comments: Sexual Activity: Yes; Male Contraception: No contraception data on record PAST MEDICAL HISTORY Diagnosis Date Anemia Congenital heart defect Hole in heart. Closed on own, no surgical correction Hypoglycemia PAST SURGICAL HISTORY Procedure Laterality Date APPENDECTOMY INSERTION OF IUD SALPINGECTOMY Bilateral 01/30/2021 Laporascopic, IUD removal FAMILY HISTORY Problem Relation Age of Onset Psychiatry Mother Thyroid Mother No Known Problems Father No Known Problems Sister No Known Problems Brother No Known Problems Brother Lipids Maternal Grandmother Arthritis Maternal Grandfather Heart Maternal Grandfather Stroke Maternal Grandfather other (dementia) Maternal Grandfather Breast Cancer Other MGaunt Colon Cancer Other MGuncle No Known Problems Paternal Grandmother No Known Problems Paternal Grandfather No Known Problems Daughter SOCIAL HISTORY Social History Tobacco Use Smoking status: Former Smoker Years: 5.00 Quit date: 09/20/2015 Years since quittin.4 Smokeless tobacco: Never Used Vaping Use Vaping Use: Never used Substance Use Topics Alcohol use: No Drug use: Never REVIEW OF SYSTEMS Abdomen: No abdominal pain, nausea, vomiting, diarrhea, or constipation. No bloating, early satiety, indigestion, or increased flatulence. Bladder: No dysuria, gross hematuria, urinary frequency, urinary urgency, or incontinence. Breast: No breast lumps, nipple d/c, overlying skin changes, redness or skin retraction and Pain inthe left breast. Allergies and current medication updated:Yes EXAM: Ht 5' 4.5 (1.64m) Wt 117 lb (53.1kg) LMP 02/02/2022 BMI 19.78 kg/(m^2). GENERAL: pleasant, female in no apparent distress HEENT: Normocephalic, atraumatic, mucus membranes moist and no lesions NECK: Supple, full range of motion, no adenopathy and thyroid normal DERMATOLOGY: Normal, without lesions, non-icteric and non-hirsute BREAST: soft, non-tender, symmetric, no dominant mass, normal nipple-areolar complex, no lymphadenopathy, no nipple discharge and fibrocystic changes CHEST: Normal inspiratory effort ABDOMEN: soft, non-tender and no masses PELVIC: external genitalia normal, normal Bartholin's glands, urethra, Sparta's glands, no vulvar lesions, no cervical lesions, good vaginal support, physiologic discharge present, normal appearing perineal body and perianal region BIMANUAL: uterus normal size, shape and consistency, no adnexal masses and non-tender RECTOVAGINAL: deferred. NEURO: alert and oriented x3,exam grossly non-focal EXTREMITIES: varicose vein in legs ASSESSMENT/PLAN: 1) Health maintenance: Pap done with reflex HPV. Mammogram starting age 40. Breast US ordered for fibrocystic changes and breast pain Nutrition, exercise and routine health maintenance exams reviewed. Calcium/Vitamin D supplementation information provided. HPV vaccine: completed series 2) Contraception: tubal sterilization. Contraceptive options reviewed and information provided. 3) STD screening: Declined STD check. 4) Follow up one year or sooner as needed Susan Jarrell APRN.NUBIA documented in this encounterC[facility]03-[facility] History of Past illness Narrative* Problem Noted Date Resolved Date Lactating mother 11/24/2018 01/19/2019 Overview: 11/24/2018 Patient is nursing. In process of weaning. TKRN Quit smoking 08/06/2016 01/19/2019 Overview: 08/06/2016Pt quit smoking earlier this year. Discussed risks of smoking during and advised pt to continue not smoking.TKRN Nausea/vomiting in 08/06/2016 Overview: 08/06/2016Patient is complaining of nausea in . She denies any vomiting. Dietary considerations discussed. Advised patient to call/come in if she is unable to keep any food or fluids down in a 24-hour periodTKRN Patient requested diagnostic testing 08/06/2016 09/09/2016 Overview: 11/24/2018 Patient desires nuchal ultrasound and CF carrier screening testing. Patient desires nuchal ultrasound and CF carrier screening testing. TKRN documented as of this encounter (statuses as of 02/13/2022) [facility]03-07-[facility] History of Past illness Narrative* Problem Noted Date Resolved Date Lactating mother 11/24/2018 01/19/2019 Overview: 11/24/2018 Patient is nursing. In process of weaning. TKRN Quit smoking 08/06/2016 01/19/2019 Overview: 08/06/2016Pt quit smoking earlier this year. Discussed risks of smoking during and advised pt to continue not smoking.TKRN Nausea/vomiting in 08/06/2016 Overview: 08/06/2016Patient is complaining of nausea in . She denies any vomiting. Dietary considerations discussed. Advised patient to call/come in if she is unable to keep any food or fluids down in a 24-hour periodTKRN Patient requested diagnostic testing 08/06/2016 09/09/2016 Overview: 11/24/2018 Patient desires nuchal ultrasound and CF carrier screening testing. Patient desires nuchal ultrasound and CF carrier screening testing. TKRN documented as of this encounter (statuses as of 02/19/2022) [facility]03-07-[facility] History of Past illness Narrative* Problem Noted Date Resolved Date Lactating mother 11/24/2018 01/19/2019 Overview: 11/24/2018 Patient is nursing. In process of weaning. TKRN Quit smoking 08/06/2016 01/19/2019 Overview: 08/06/2016Pt quit smoking earlier this year. Discussed risks of smoking during and advised pt to continue not smoking.TKRN Nausea/vomiting in 08/06/2016 Overview: 08/06/2016Patient is complaining of nausea in . She denies any vomiting. Dietary considerations discussed. Advised patient to call/come in if she is unable to keep any food or fluids down in a 24-hour periodTKRN Patient requested diagnostic testing 08/06/2016 09/09/2016 Overview: 11/24/2018 Patient desires nuchal ultrasound and CF carrier screening testing. Patient desires nuchal ultrasound and CF carrier screening testing. TKRN documented as of this encounter (statuses as of 09/11/2022) [facility]03-[facility] History of Past illness Narrative* Problem Noted Date Resolved Date Lactating mother 11/24/2018 01/19/2019 Overview: 11/24/2018 Patient is nursing. In process of weaning. TKRN Quit smoking 08/06/2016 01/19/2019 Overview: 08/06/2016Pt quit smoking earlier this year. Discussed risks of smoking during and advised pt to continue not smoking.TKRN Nausea/vomiting in 08/06/2016 Overview: 08/06/2016Patient is complaining of nausea in . She denies any vomiting. Dietary considerations discussed. Advised patient to call/come in if she is unable to keep any food or fluids down in a 24-hour periodTKRN Patient requested diagnostic testing 08/06/2016 09/09/2016 Overview: 11/24/2018 Patient desires nuchal ultrasound and CF carrier screening testing. Patient desires nuchal ultrasound and CF carrier screening testing. TKRN documented as of this encounter (statuses as of 09/12/2022) [facility]* Diagnosis Encounter for gynecological examination (general) (routine) without abnormal findings- Primary Screening for cervical cancer Screening for malignant neoplasm of the cervix Encounter for screening for human papillomavirus (HPV) Special screening examination for human papillomavirus (HPV) Breast pain Mastodynia documented in this encounter [facility]* Diagnosis Breast pain Mastodynia documented in this encounter [facility]* Diagnosis Influenza-like illness- Primary Influenza with other respiratory manifestations documented in this encounter [facility] for referral (narrative)* Diagnostic Procedure Only (Routine) - Authorized Specialty Diagnoses / Procedures Referred By Eze hodgson Referred To Contact [facility] Diagnoses Breast pain Procedures JEANNE DIAGNOSTIC LT DIAGNOSTIC MAMMOGRAPHY COMPUTER-AIDED DETCJ UNI Susan Jarrell APRN.DISPATCHER RELAY [address] [place] [address] [facility] [address] [address] Referral ID Status Reason Start Date Expiration Date Visits Requested Visits Authorized [id number] Authorized Auto-Generat ed Referral 02/13/2022 03/15/2023 1 1 * Diagnostic Procedure Only (Routine) - Pending Review Specialty Diagnoses / Procedures Referred By Eze hodgson Referred To Contact [facility] Diagnoses Breast pain Procedures US BREAST LTD LT US BREAST UNI REAL TIME WITH IMAGE LIMITED Susan Jarrell APRN.DISPATCHER RELAY [address] [place] [address] [facility] [address] [place] [address] Referral ID Status Reason Start Date Expiration Date Visits Requested Visits Authorized [id number] Pending Review Auto-Generat ed Referral 02/13/2022 03/15/2023 1 1 [facility] for referral (narrative)No reason for referral information availableWCleveland Clinic [facility] Work Phone: Reason for visit Narrative* Diagnostic Procedure Only (Routine) - Closed Specialty Diagnoses / Procedures Referred By Contac t Referred To Contact [facility] Diagnoses Breast pain Procedures JEANNE DIAGNOSTIC LT DIAGNOSTIC MAMMOGRAPHY COMPUTER-AIDED DETCJ Susan Anne, MEDICAL CLAIMS SPECIALIST.DISPATCHER RELAY [address] [place] [address] [facility] [address] [place] [address] Referral ID Status Reason Start Date Expiration Date V isits Requested Visits Authorized [id number] Closed Auto-Generate d Referral 02/13/2022 03/15/2023 1 1 [facility] Summary Purpose Family History No Family History Records Found Relationship Condition Age at Onset Recorded Date/T [place] father Asthma Unknown mother Malignant neoplasm Unknown Disorder of thyroid Unknown Advance Directives No Advanced Directives Records FoundNo Advanced Directives Records Found Chief Complaint and Reason for Visit Chief Complaint Admit Date Varicose Veins December 29, 2024 3:0 0pm Pain January 22, 2025 3:04pm Reason for Visit Admit Date Varicose veins of leg with pain December 292024 3:00pm Additional Source Comments Source Comments (unrecognize d section and content) In the event this informatio n is protected by the Federal Confidentiality of Alcohol and Drug Abuse Patient Records regulations: The Federal rules restrict any use of the information to criminally investigate or prosecute any alcohol or drug abuse patient.[facility] HospitalIn the event this information is protected by the Federal Confidentiality of Alcohol and Drug Abuse Patient Records regulations: The Federal rules restrict any use of the information to criminally investigate or prosecute any alcohol or drug abuse patient.[facility] Hospital[facility] the event this information is protected by the Federal Confidentiality of Alcohol and Drug Abuse Patient Records regulations: The Federal rules restrict any use of the information to criminally investigate or prosecute any alcohol or drug abuse patient.[facility] Hospital[facility] the event this information is protected by the Federal Confidentiality of Alcohol and Drug Abuse Patient Records regulations: The Federal rules restrict any use of the information to criminally investigate or prosecute any alcohol or drug abuse patient.[facility] Reason for Visit (unrecogniz ed section and content) Reason Comments Yearly Exam Reason Comments Fever Pt reported sore thr oat, cough x1 day. Reason Comments Results INFORMATION SOURCE (unrecogn ized section and content) DATE CREATED AUTHOR 02/19/2024 [facility] DATE CREATED AUTHOR AUTHOR'S ORGANIZ ATION 02/23/2025 [facility] Care Teams (unrecognized sec tion and content) Team Status: Active Member Role Status Dates Dr. Betty Donnelly MD Primary Care Provider Active Team Status: Inactive Member Role Status Dates Dr. Betty Donnelly MD Primary Care Provider Active Start: December 29, 2024 End: December 29, 2024 Dr. Betty Donnelly MD Referring Provider Active Start: December 29, 2024 End: December 29, 2024 DANGELO Oliveira Attending Provider Active Star t: December 29, 2024 End: December 29, 2024 Team Status: Inactive Member Role Status Dates Dr. Betty Donnelly MD Primary Care Provider Active Start: January 22, 2025 End: January 22, 2025 DANGELO Oliveira Attending Provider Active Star t: January 22, 2025 End: January 22, 2025 DANGELO Oliveira Referring Provider Active Star t: January 22, 2025 End: January 22, 2025 Team Status: Active Member Role Status Dates Dr. Betty Donnelly MD Primary Care Provider Active Start: January 22, 2025 Dr. Lopez Whiteside MD Attending Provider Active S tart: January 22, 2025 Goals (unrecognized section and content) Goals may be documented in a n alternate section FOR RECORDS PERTAINING TO PATIENTS WHO ARE OR HAVE BEEN ENROLLED IN A CHEMICAL DEPENDENCY/SUBSTANCEABUSE PROGRAM, SOME INFORMATION MAY BE OMITTED. This clinical summary was aggregated from multiple sources. Caution should be exercised in using it in the provision of clinical care. This summary normalizes information from multiple sources, and as a consequence, information in this document may materially change the coding, format and clinical context of patient data. In addition, data may be omitted in some cases. CLINICAL DECISIONS SHOULD BE BASED ON THE PRIMARY CLINICAL RECORDS. [employer] [facility]. provides no warranty or guarantee of the accuracy or completeness of information in this document.
--- NOTE | 2025-03-01 10:13 | PCM.HP.STD ---
HPI - General HPI Narrative JR LASSITER, is a 29 F who presents with left lower extremity painful varicose veins that have been refractory to compression garment use. She has had a venous duplex that reveals reflux throughout the left great saphenous vein and a thigh accessory that is within the area of her most significant symptoms. She presents for chemical ablation. PFSH Medical History Anemia Former smoker Home Medications ?Medication ?Instructions ?Recorded ?Last Taken ?Type NK 01/23/21 Unknown History Allergy/AdvReac Type Severity Reaction Status Date / Time No Known Allergies Allergy Verified 12/29/24 15:25 Family History Father Asthma Mother Cancer Thyroid disorder Surgical History Hx of appendectomy Social History Smoking Status: Former smoker ROS Constitutional Constitutional: Denies chills, fever(s), frequent falls, lethargy or weakness Eyes Eyes: Denies blind spots, change in vision or loss of vision ENT HEENT: Denies bleeding gums, hoarseness or sore throat Cardiovascular Cardiovascular: Denies abdominal pain, bluish discoloration of hand/feet, chest pain with activity, claudication, cold extremities, cyanosis, dyspnea on exertion, erythema on extremities, irregular heart rhythm, leg edema, leg ulcers, numbness in extremities or weakness in extremities Respiratory/Chest Respiratory/Chest: Denies cough, excessive phlegm production, shortness of breath at rest, shortness of breath with exertion or wheezing Gastrointestinal Gastrointestinal: Denies anorexia, change in stool character, constipation, diarrhea, melena or rectal bleeding Genitourinary Genitourinary: Denies dysuria or hematuria Musculoskeletal Musculoskeletal: Denies abnormal gait Integumentary Integumentary: Reports other Details: ; Denies erythema, non-healing lesions or wounds Neurologic Neurologic: Denies abnormal speech, focal weakness, headache(s), loss of vision, numbness, paresthesias or sensory deficit Hematologic/Lymphatic Hematologic/Lymphatic: Denies easy bleeding, easy bruising or lymphadenopathy Vital Signs Vital Signs Vital Signs: Weight Weight: 128 lb Body Mass Index (BMI) 21.9 Assessment & Plan Assessment/Plan (1) Varicose veins of leg with pain: QUALIFIERS: Laterality: left Qualified Code(s): I83.812 - Varicose veins of left lower extremity with pain PLAN: -left GSV chemical ablation
--- NOTE | 2025-03-01 11:23 | PCM.OPRPT ---
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 She has attempted conservative management with compression garments for several years with progressive worsening symptoms so she presents now for chemical ablation of left great saphenous vein. Description of procedure: Upon obtaining informed consent and verification correct patient procedure and site the patient was in the Office Coordinator Receptionist where she was positioned prepped and draped in usual sterile fashion. Timeout was performed consultation ministered Versed. The left great saphenous vein was then evaluated with ultrasound found to be contiguous from the distal calf to the saphenofemoral junction with a large accessory saphenous varicosity in the proximal thigh. The vessel from the proximal calf and inferior was very small caliber and appeared to be difficult to access but we intended to attempt to treat the greatest length of the saphenous vein possible. Skin overlying the mid calf great saphenous vein was anesthetized 1% lidocaine and the vessel accessed with a micropuncture needle. We were unable to advance the wire despite visualization of the needle tip in the lumen and backbleeding from the needle. After multiple efforts we decided to move more superiorly on the leg and skin overlying the great saphenous vein just above the knee was anesthetized 1% lidocaine. Under ultrasound guidance using micropuncture needle wire were able to successfully access and exchanged for the 7 Tamazight ablation sheath. Through this the glue delivery guide was advanced and positioned 5 cm inferior to the saphenofemoral junction. The glue delivery catheter was then prepped for metal pickling equipment operator instructions and advanced through the guide and positioned 5 cm below the saphenofemoral junction. Glue was then instilled per metal pickling equipment operator's instructions along the length of the treatment zone from the superior position down to just above the sheath tip. Upon completing the treatment zone the guiding catheter was withdrawn followed by the sheath and manual pressure for 5 minutes until hemostasis was observed. Dry sterile dressing and Efrain wrap were then applied the patient and taken the recovery area plan discharged home. Surgical Findings: see above Complications Complications: No
== END 2025-03-01 12:19 | disposition home or self-care (01) ==
PROVIDERS: PCP Family Medicine; Referring Provider Surgery Trauma Surgery; Visit Provider Surgery Trauma Surgery
DX: I83.812 Varicose veins of left lower extremity with pain (principal); Z87.891 Personal history of nicotine dependence
CPT/HCPCS: 36482; 99152; 99153; C1894

== ENCOUNTER → 2025-03-05 | Outpatient (CLI) | payer BC, SELFPAY ==
--- NOTE | 2025-03-05 08:53 | VDLE_ITS ---
Reason For Study Reason For Study: S/P Lt GSV/ASV Chemical Ablation RIGHT LEFT CFV is compressible, spontaneous, phasic, competent Lt GSV is compressible from ankle to knee. Lt GSV is and demonstrates normal augmentation. dilated and NONCOMPRESSIBLE from knee to SFJ with Procedure bright intraluminal echoes noted. Finding is This is a venous duplex using B-mode, color flow and consistent with recent chemical ablation. spectral Doppler. Lt ASV prox thigh and knee appear dilated and Exam performed in department. PARTIALLY COMPRESSIBLE with intraluminal echoes The exam was diagnostic. noted. Finding is consistent with recent chemical ablation. CFV is compressible, spontaneous, phasic, competent, and demonstrates normal augmentation. FV is compressible, spontaneous, phasic, competent and demonstrates normal augmentation. POP V is compressible, spontaneous, phasic, competent and demonstrates normal augmentation. T/P Trunk is compressible. PTV is compressible. LT PerV is compressible. VL/Venous Duplex US, Unilateral Interpretation Summary Deep veins of the left lower extremity are patent and compressible segmentally. The left great saphenous vein appears patent and compressible segmentally. Left great saphenous and accessory saphenous veins occluded consistent with rec ent chemical ablation. Ordering Physician: Almaz Macdonald Referring Physician: Betty Vargas Performed By: Binu Romo RVT
--- OUTSIDE RECORDS SUMMARY | 2025-03-05 18:54 | XMS RPT_ITS | CCD ---
Author Organization [facility] Care Team Providers Care Nut Threader Name Role Phone Unavailable Primary Care Provider Unavailabl e Cony SOLIZ, Dr. Betty Rizzo Primary Care Provider [phone] Cony SOLIZ, Dr. Betty Rizzo Referring Provider [phone] Renae PIERSON, Almaz Attending Provider [phone] Renae PIERSON, Almaz Referring Provider [phone] Stevo SOLIZ, Dr. Marroquin Attending Provider [phone] Stevo SOLIZ, Dr. Marroquin Referring Provider [phone] Stevo SOLIZ, Dr. Marroquin Other Provider [phone] Jolliff, Betty S Primary Care Unavailable Stevo, Lopez Consulting Unavailable [place], Lopez Attending Unavailable [place], Lopez Referring Unavailable Jolliff, Betty S Primary Care Unavailable [place], Lopez Attending Unavailable [place], Lopez Referring Unavailable Macdonald, Almaz Referring Unavailable Jolliff, Betty S Primary Care Unavailable Macdonald, Almaz Attending Unavailable Jolliff, Betty S Primary Care Unavailable Jolliff, Betty S Referring Unavailable Macdonald, Almaz Attending Unavailable Macdonald, Almaz Referring Unavailable Jolliff, Betty S Primary Care Unavailable [place], Lopez Attending Unavailable Medications Completed/Discontinued Medications Medication Drug Class(es) [...] Documented Date Episodic/Chronic Contraceptive and procreative management (4 sources) Intrauterine contraceptive device in situ; Translations: [...] Episodic Other diseases of veins and lymphatics (2 sources) Vascular insufficiency; Translations: [Venous insufficiency (chronic) (peripheral)] 12-29-2024 Episodic Other diseases of veins and lymphatics (1 source) Venous insufficiency (chronic) (peripheral); Translations: [Venous insufficiency (chronic) (peripheral)] Onset: 01-08-2025 Episodic Other screening for suspected conditions (not mental disorders or infectious disease) (1 source) Cancer cervix screening status; Translations: [Encounter for screening for malignant neoplasm of cervix] Episodic Varicose veins of lower extremity (9 sources) Varicose veins of lower extremity; Translations: [Varicose veins of unspecified lower extremity with pain] Onset: 03-01-2025 12-29-2024 Episodic Past or Other Problems Problem [...] Name Value Interpretation Reference Range Facil ity Operative Reporton Operative Report [facility] Medical Records Department [address] [place] [id number] Operative Report 03/01/25 1123 MR#: [id number] Acct: [id number] Name: NOHELIA LASSITER Rep #: [id number] : 1995 29 From: Lopez Whiteside MD PCP: Dr. Betty Donnelly MD Status:[facility] Location: [facility] Operative Report (Standard) Operative Information Date of Procedure: 03/01/25 Pre-Operative Diagnosis: Varicose veins with pain Post-Operative Diagnosis: same Surgery/Procedure Performed: chemical ablation left great saphenous vein underwear finisher: No Type of Anesthesia: Local and Sedation,Conscious Procedure Start Time: 10:40 Procedure Stop Time: 11:10 Select all DRAINS/GRAFTS/IMPLAN TS that apply: None Estimated Blood Loss: 3 Specimen collected: No Description of surgery: HPI: Patient is a 29-year-old female with painful varicose veins of the left lower extremity and valvular reflux in the left great saphenous vein throughout as well as a left thigh accessory saphenous vein which joins the great saphenous in the proximal thigh. She has attempted conservative management with compression garments for several years with progressive worsening symptoms so she presents now for chemical ablation of left great saphenous vein. Description of procedure: Upon obtaining informed consent and verification correct patient procedure and site the patient was in the Dewater[employer] Filtering Supervisor where she was positioned prepped and draped in usual sterile fashion. Timeout was performed consultation ministered Versed. The left great saphenous vein was then evaluated with ultrasound found to be contiguous from the distal calf to the saphenofemoral junction with a large accessory saphenous varicosity in the proximal thigh. The vessel from the proximal calf and inferior was very small caliber and appeared to be difficult to access but we intended to attempt to treat the greatest length of the saphenous vein possible. Skin overlying the mid calf great saphenous vein was anesthetized 1% lidocaine and the vessel accessed with a micropuncture needle. We were unable to advance the wire despite visualization of the needle tip in the lumen and backbleeding from the needle. After multiple efforts we decided to move more superiorly on the leg and skin overlying the great saphenous vein just above the knee was anesthetized 1% lidocaine. Under ultrasound guidance using micropuncture needle wire were able to successfully access and exchanged for the 7 Yemeni ablation sheath. Through this the glue delivery guide was advanced and positioned 5 cm inferior to the saphenofemoral junction. The glue delivery catheter was then prepped for handstitching machine armhole feller instructions and advanced through the guide and positioned 5 cm below the saphenofemoral junction. Glue was then instilled per handstitching machine armhole feller's instructions along the length of the treatment zone from the superior position down to just above the sheath tip. Upon completing the treatment zone the guiding catheter was withdrawn followed by the sheath and manual pressure for 5 minutes until hemostasis was observed. Dry sterile dressing and Efrain wrap were then applied the patient and taken the recovery area plan discharged home. Surgical Findings: see above Complications Complications: No 03/01/25 1302 Cosigner Signature (if applicable): CC: Dr. Betty Donnelly MD; Dr. Lopez Whiteside MD Signed Normal [facility] Venous Duplex US - Jaime [facility] 01-22-2025 Venous Duplex US - Jaime [facility] Cardiovascular [facility] [address] [place] [address] Venous Duplex US - Jaime Extrem 01/22/25 1509 MR#: [id number] Acct: [id number] Name: NOHELIA LASSITER Rep #: [id number] : 1995 29 From: Lopez Whiteside MD [...] 0.5 seconds and measures 0.90 cm. SSV mine production engineer at 18 cm above medial malleolus is [...] Donnelly M.D. Performed By: Jaycee Sanchez RVT 01/22/25 1748 Date Lopez Whiteside MD CC: DANGELO Oliveira; Dr. Betty Donnelly MD Date Dictated: 01/22/25 1509 Date Transcribed: 01/22/25 1748 Metaphysician: Signed Normal [facility] Venous duplex ultrasound rep ortOrdered By: Lopez Whiteside on 01-22-2025 US Vein [facility] Cardiovascular Services [address] [place] [address] Venous Duplex US - Jaime Extrem 01/22/25 1509 MR#: [id number] Acct: [id number] Name: NOHELIA LASSITER Rep #:[id number] : 1995 29 From: Lopez Juan Attending [...] 0.5 seconds and measures 0.90 cm. SSV mine production engineer at 18 cm above medial malleolus is [...] Donnelly M.D. Performed By: Jaycee Sanchez RVT 01/22/25 4946 Date _ Lopez Whiteside MD CC: DANGELO Oliveira; Dr. Betty Donnelly MD ~ Date Dictated: 01/22/25 1509 Date Transcribed: 01/22/251747 Metaphysician: Signed [facility] Work Phone: MR/BMS.[facility]erm[facility] 12-29-2024 MR/BMS.BVS [facility] Surgery [address] [place] [address] OFFICE VISIT Date of Service: 12/29/24 MR#: [id number] Acct: [id number] Name: NOHELIA LASSITER Rep #: [id number] : 1995 Provider: DANGELO Oliveira Age/Sex: 29/F [place] [facility] Status: Signed with Addenda ADDENDUM by DANGELO [...] No behavioral (more content not included)... Normal [facility] Influenza virus A and B RNA and SARS-CoV-2 (COVID-19) N gene panel ANICETO+probe (Resp)on 09-11-2022 FLUAV RNA ANICETO+probe Ql (Unsp spec) Positive Abnormal Negative for Influenza A by RT-PCR [facility] FLUBV RNA ANICETO+probe Ql (Unsp spec) Negative Negative for Influenza B by RT-PCR [facility] SARS-CoV-2 (COVID-19) RNA ANICETO+probe Ql (Resp) SARS-CoV-2 (Agent of COVID-19) Not Detected by RT-PCR or equivalent method. Not Detected [facility] JEANNE DIAG W PILLO LTon 022 [facility] Vital Signs Date Time Vital Sign Value Performing Clinician Abimael herring 03-01-2025 08:54-0400 Body height 162.[address] Betty Donnelly MD Work Phone: [facility] 03-01-2025 08:54-0400 Body weight 58.[address] Betty Donnelly MD Work Phone: [facility] 02-28-2025 08:45-0400 Body mass index (BMI) [Ratio] 21.9 kg/m2 Dr. Betty Donnelly MD Work Phone: [facility] 12-29-2024 15:21-0400 Body temperature 99.3 [degF] Dr. Betty Donnelly MD Work Phone: [facility] 12-29-2024 15:21-0400 Body weight 58.[address] Betty Donnelly MD Work Phone: [facility] 12-29-2024 15:21-0400 Diastolic blood pressure 75 mm[Hg] Dr. Betty Donnelly MD Work Phone: [facility] 12-29-2024 15:21-0400 Heart rate 85 /min Dr. Betty Donnelly MD Work Phone: [facility] 12-29-2024 15:21-0400 Respiratory rate 16 /min Dr. Betty Donnelly MD Work Phone: [facility] 12-29-2024 15:21-0400 SaO2% (BldA) [Mass fraction] 99 % Dr. Betty Donnelly MD Work Phone: [facility] 12-29-2024 15:21-0400 Systolic blood pressure 117 mm[Hg] Dr. Betty Donnelly MD Work Phone: [facility] 09-10-2022 07:35-0500 Body temperature 98.1 [degF] Bryan Kamara APRN.HAND WEAVER Work Phone: [facility] 09-10-2022 07:35-0500 Body weight 52.62 kg Bryan Kamara APRN.HAND WEAVER Work Phone: [facility] 09-10-2022 07:35-0500 Diastolic blood pressure 78 mm[Hg] Bryan Kamara APRN.HAND WEAVER Work Phone: [facility] 09-10-2022 07:35-0500 Heart rate 128 /min Bryan Kamara APRN.HAND WEAVER Work Phone: [facility] 09-10-2022 07:35-0500 Respiratory rate 16 /min Bryan Kamara HOGSHEAD MAT ASSEMBLER.HAND WEAVER Work Phone: [facility] 09-10-2022 07:35-0500 SaO2% (BldA) [Mass fraction] 100 % Bryan Asad HOGSHEAD MAT ASSEMBLER.HAND WEAVER Work Phone: [facility] 09-10-2022 07:35-0500 Systolic blood pressure 124 mm[Hg] Bryan Kamara HOGSHEAD MAT ASSEMBLER.HAND WEAVER Work Phone: [facility] 02-13-2022 15:56-0400 Body height 163.8 cm Susan Wesly HOGSHEAD MAT ASSEMBLER.HAND WEAVER Work Phone: [facility] 02-13-2022 15:56-0400 Body weight 53.07 kg Susan Newfane HOGSHEAD MAT ASSEMBLER.HAND WEAVER Work Phone: [facility] 02-13-2022 15:56-0400 Diastolic blood pressure 64 mm[Hg] Susan Newfane HOGSHEAD MAT ASSEMBLER.HAND WEAVER Work Phone: [facility] 02-13-2022 15:56-0400 Systolic blood pressure 112 mm[Hg] Suasn Wesly HOGSHEAD MAT ASSEMBLER.HAND WEAVER Work Phone: [facility] Encounters Encounter Date Encounter Type Care Provider Facility Start: 03-01-2025 ambulatory Betty Donnelly [facility] [facility] Start: 03-01-2025 Non-patient / Non-visit Dr. Lopez morillo MD -[facility] Start: 03-01-2025 End: 03-01-2025 Admission to same day surgery center Dr. Lopez Whiteside MD -Dewatering Filtering Supervisor/Special Procedures Work Phone: Start: 03-01-2025 End: 03-01-[address] Betty Donnelly MD Work Phone: [facility] Work Phone: Start: 01-22-2025 Non-patient / Non-visit Dr. Lopez morillo MD -[facility] Start: 01-22-2025 End: 01-22-[address] Betty Donnelly MD Work Phone: [facility] Work Phone: Start: 01-22-2025 End: 01-22-2025 Patient encounter procedure Almaz PIERSON -Cardiovascular Services Work Phone: Start: 01-22-2025 End: 01-22-2025 ambulatory Almaz Macdonald Facility:[facility] Start: 12-29-2024 End: 12-29-2024 Patient encounter procedure Almaz PIERSON -[facility] Work Phone: Start: 12-29-2024 End: 12-29-2024 ambulatory Betty Donnelly [facility] Start: 09-11-2022 Telephone encounter So moreno PA-C Work Phone: [facility] Comment on above: Results Start: 09-10-2022 End: 09-10-2022 ambulatory Facility:[facility] Start: 09-10-2022 End: 09-10-2022 Patient encounter procedure Bryan Kamara APRN.HAND WEAVER Work Phone: [facility] Comment on above: Influenza-like illne ss (Primary Dx) Start: 02-18-2022 End: 02-18-2022 Subsequent hospital visit by physician [facility] Start: 02-13-2022 End: 02-13-2022 Patient encounter procedure Susan Jarrell APRN.HAND WEAVER Work Phone: OB/Gynecology Comment on above: Encounter for gyneco logical examination (general) (routine) without abnormal findings (Primary Dx); Screening for cervical cancer; Encounter for screening for human papillomavirus (HPV); Breast pain Start: 02-13-2022 End: 02-13-2022 Patient encounter status Susan Jarrell APRN.HAND WEAVER Work Phone: OB/Gynecology Procedures Date Procedure Procedure Detail Performing Clinician Start: 09-10-2022 COVID WITH FLUA+B, ROUTINE Bryan Kamara APRN.HAND WEAVER Work Phone: Start: 02-18-2022 JEANNE Cavazos APRN.HAND WEAVER Work Phone: Plan of Treatment Date Care Activity Detail Author Start: 04-21-2029 Urine microalbumin profile DTAP,TDAP,TD (3 - Td or Tdap) [facility] Start: 03-01-2025 Patient discharge [facility] Start: 02-13-2025 PAP TESTING PAP TESTING [facility] Start: 05-21-2022 Influenza vaccination [facility] Start: 11-24-2021 PAP TESTING PAP TESTING [facility] Start: 09-20-2021 DEPRESSION ASSESSMENT DEPRESSION ASS ESSMENT [facility] Start: 06-25-2021 COVID-19 VACCINE (3 - Booster for Moderna series) COVID-19 VACCINE (3 - Booster for Moderna series) [facility] Start: 03-20-2021 COVID-19 VACCINE (3 - Booster for Moderna series) COVID-19 VACCINE (3 - Booster for Moderna series) [facility] Start: 2005 Adult depression screening assessment DEPRESSION SCREENING [facility] Start: 1995 HEPATITIS B (1 of 3 - 3-dose series) HEPATITIS B (1 of 3 - 3-dose series) [facility] End: 03-15-2023 Diagnostic mammography computer-aided detcj uni JEANNE DIAGNOSTIC LT Radiology Routine Breast pain 1 Occurrences starting 02/13/2022 until 03/15/2023 [facility] Work Phone: Comment on above: 1 Occurrences starti ng 02/13/2022 until 03/15/2023 PAP FLUID CERVICAL SCREENING PAP FLUID CERVICAL SCREENING Lab Routine Screening for cervical cancer Encounter for screening for human papillomavirus (HPV) Ordered: 02/13/2022 [facility] Work Phone: Comment on above: Ordered: 02/13/2022 Patient referral [facility] Work Phone: End: 03-15-2023 Us breast uni real time with image limited US BREAST LTD LT Radiology Routine Breast pain 1 Occurrences starting 02/13/2022 until 03/15/2023 [facility] Work Phone: Comment on above: 1 Occurrences starti ng 02/13/2022 until 03/15/2023 [facility] Immunizations Immunization Date Immunization Notes Care Provider Estela briseno 04-21-2019 Diptheria,Tetanus,Pe rtu ssis Vaccine Dr. Betty Donnelly MD Work Phone: [facility] 04-21-2019 tetanus toxoid, redu tatianna diphtheria toxoid, and acellular pertussis vaccine, adsorbed Susan Newfane HOGSHEAD MAT ASSEMBLER.HAND WEAVER Work Phone: [facility] 12-29-2016 tetanus toxoid, redu tatianna diphtheria toxoid, and acellular pertussis vaccine, adsorbed Susan Newfane HOGSHEAD MAT ASSEMBLER.HAND WEAVER Work Phone: [facility] Payers Date Payer Category Payer Self-pay 2024 Unknown [id number] 2021 Private Health Insurance [employer] OAP [id number] 2021-Present [phone] [address] [place] [address] Open Access [id number] 2021 Private Health Insurance [id number] 2018 Unknown [employer] PPO [id number] 2018-Present [phone] [address] [place] [address] PPO [id number] Unknown [id number] Unknown [id number] Unknown [id number] Unknown [id number] Unknown [id number] Social History Date Type Detail Facility Start: 08-06-2016 End: 03-01-2025 Tobacco smoking status NHIS Ex-smoker [facility] Work Phone: End: 09-20-2015 History of tobacco use Current smoker [facility] Work Phone: Start: 08-06-2016 End: 09-01-2018 Tobacco use and exposure Smokeless tobacco non-user [facility] Work Phone: Start: 02-13-2022 End: 09-10-2022 Alcohol intake Current non-drinker of alcohol (finding) [facility] Start: 1995 Sex Assigned At Not on file [facility] Start: 02-03-2022 End: 02-18-2022 Exposure to SARS-CoV-2 (event) Not sure [facility] Work Phone: End: 09-20-2015 History of tobacco use Cigarette Smoker [facility] Start: 07-06-2019 Alcohol Alcohol [facility] Start: 01-23-2021 Tobacco Use Tobacco Use [facility] Start: 1995 Sex Assigned At Female W [facility] Clinical Notes 11-24-2018 to 03-01-2025 Note Date & Type Note Facility 03-01-2025 History and physi luna note Note Date/Time March 01, 2025 10:16[facility] Medical Records Department [address] [place] [address] History & Physical Exam 03/01/25 1013 MR#: [id number] Acct: [id number] Name: NOHELIA LASSITER Rep #:[id number] : 1995 29 From: Lopez Whiteside MD PCP: Dr. Betty Donnelly MD Status:[facility] Location: [facility] HPI - General HPI Narrative NOHELIA LASSITER, is a 29 F who presents with left lower extremity painful varicose veins that have been refractory to compression garment use. She has had a venousduplex that reveals reflux throughout the left great saphenous vein and a thigh accessory that is within the area of her most significant symptoms. She presentsfor chemical ablation. [facility] Medical History Anemia Former smoker Home Medications ?Medication ?Instructions ?Recorded ?Last Taken ?Type NK 01/23/21 Unknown History Allergy/AdvReac Type Severity Reaction Status Date / Time No Known Allergies Allergy Verified 12/29/24 15:25 Family History Father Asthma Mother Cancer Thyroid disorder Surgical History Hx of appendectomy Social History Smoking Status: Former smoker ROS Constitutional Constitutional: Denies chills, fever(s), frequent falls, lethargy or weakness Eyes Eyes: Denies blind spots, change in vision or loss of vision ENT HEENT: Denies bleeding gums, hoarseness or sore throat Cardiovascular Cardiovascular: Denies abdominal pain, bluish discoloration of hand/feet, chest pain with activity, claudication, cold extremities, cyanosis, dyspnea on exertion, erythema on extremities, irregular heart rhythm, leg edema, leg ulcers, numbness in extremities or weakness in extremities Respiratory/Chest Respiratory/Chest: Denies cough, excessive phlegm production, shortness of breath at rest, shortness of breath with exertion or wheezing Gastrointestinal Gastrointestinal: Denies anorexia, change in stool character, constipation, diarrhea, melena or rectal bleeding Genitourinary Genitourinary: Denies dysuria or hematuria Musculoskeletal Musculoskeletal: Denies abnormal gait Integumentary Integumentary: Reports other Details: ; Denies erythema, non-healing lesions or wounds Neurologic Neurologic: Denies abnormal speech, focal weakness, headache(s), loss of vision,numbness, paresthesias or sensory deficit Hematologic/Lymphatic Hematologic/Lymphatic: Denies easy bleeding, easy bruising or lymphadenopathy Vital Signs Vital Signs Vital Signs: Weight Weight: 128 lb Body Mass Index (BMI) 21.9 Assessment & Plan Assessment/Plan (1) Varicose veins of leg with pain: QUALIFIERS: Laterality: left Qualified Code(s): I83.812 - Varicose veins of left lower extremity with pain PLAN: -left GSV chemical ablation 03/01/25 1016 <Electronically signed by Lopez Whiteside MD> Cosigner Signature (if applicable): CC: Dr. Betty Donnelly MD; Dr. Lopez Whiteside MD~ Signed [facility] Work Phone: [phone]) 205-602206-12-2025 History and physical note [facility] Medical Records Department [address] [place] [address] History & Physical Exam 03/01/25 1013 MR#: [id number] Acct: [id number] Name: NOHELIA LASSITER Rep #:[id number] : 1995 29 From: Lopez Whiteside MD PCP: Dr. Betty Donnelly MD Status:[facility] Location: [facility] HPI - General HPI Narrative NOHELIA LASSITER, is a 29 F who presents with left lower extremity painful varicose veins that have beenrefractory to compression garment use. She has had a venousduplex that reveals reflux throughout the left great saphenous vein and a thigh accessory that is within the area of her most significant symptoms. She presentsfor chemical ablation. [facility] Medical History Anemia Former smoker Home Medications ?Medication ?Instructions ?Recorded ?Last Taken ?Type NK 01/23/21 Unknown History Allergy/AdvReac Type Severity Reaction Status Date / Time No Known Allergies Allergy Verified 12/29/24 15:25 Family History Father Asthma Mother Cancer Thyroid disorder Surgical History Hx of appendectomy Social History Smoking Status: Former smoker ROS Constitutional Constitutional: Denies chills, fever(s), frequent falls, lethargy or weakness Eyes Eyes: Denies blind spots, change in vision or loss of vision ENT HEENT: Denies bleeding gums, hoarseness or sore throat Cardiovascular Cardiovascular: Denies abdominal pain, bluish discoloration of hand/feet, chest pain with activity,claudication, cold extremities, cyanosis, dyspnea on exertion, erythema on extremities, irregular heart rhythm, leg edema, leg ulcers, numbness in extremities or weakness in extremities Respiratory/Chest Respiratory/Chest: Denies cough, excessive phlegm production, shortness of breath at rest, shortness of breath with exertion or wheezing Gastrointestinal Gastrointestinal: Denies anorexia, change in stool character, constipation, diarrhea, melena or rectal bleeding Genitourinary Genitourinary: Denies dysuria or hematuria Musculoskeletal Musculoskeletal: Denies abnormal gait Integumentary Integumentary: Reports other Details: ; Denies erythema, non-healing lesions or wounds Neurologic Neurologic: Denies abnormal speech, focal weakness, headache(s), loss of vision,numbness, paresthesias or sensory deficit Hematologic/Lymphatic Hematologic/Lymphatic: Denies easy bleeding, easy bruising or lymphadenopathy Vital Signs Vital Signs Vital Signs: Weight Weight: 128 lb Body Mass Index (BMI) 21.9 Assessment & Plan Assessment/Plan (1) Varicose veins of leg with pain: QUALIFIERS: Laterality: left Qualified Code(s): I83.812 - Varicose veins of left lower extremity with pain PLAN: -left GSV chemical ablation 03/01/25 1016 Cosigner Signature (if applicable): CC: Dr. Betty Donnelly MD; Dr. Lopez Whiteside MD~ Signed [facility]06-12-2025 [facility] Medical Records Department [address] [place] [address] History Physical Exam 03/01/25 1013 MR#: [id number] Acct: [id number] Name: NOHELIA LASSITER Rep #: [id number] : 1995 29 From: Lopez Whiteside MD PCP: Dr. Betty Donnelly MD Status:[facility] Location: [facility] HPI - General HPI Narrative NOHELIA LASSITER, is a 29 F who presents with left lower extremity painful varicose veins that have been refractory to compression garment use. She has had a venous duplex that reveals reflux throughout the left great saphenous vein and a thigh accessory that is within the area of her most significant symptoms. She presents for chemical ablation. [facility] Medical History Anemia Former smoker Home Medications ???Medication ???Instructions ???Recorded ???Last Taken ???Type NK 01/23/21 Unknown History Allergy/AdvReac Type Severity Reaction Status Date / Time No Known Allergies Allergy Verified 12/29/24 15:25 Family History Father Asthma Mother Cancer Thyroid disorder Surgical History Hx of appendectomy Social History Smoking Status: Former smoker ROS Constitutional Constitutional: Denies chills, fever(s), frequent falls, lethargy or weakness Eyes Eyes: Denies blind spots, change in vision or loss of vision ENT HEENT: Denies bleeding gums, hoarseness or sore throat Cardiovascular Cardiovascular: Denies abdominal pain, bluish discoloration of hand/feet, chest pain with activity, claudication, cold extremities, cyanosis, dyspnea on exertion, erythema on extremities, irregular heart rhythm, leg edema, leg ulcers, numbness in extremities or weakness in extremities Respiratory/Chest Respiratory/Chest: Denies cough, excessive phlegm production, shortness of breath at rest, shortness of breath with exertion or wheezing Gastrointestinal Gastrointestinal: Denies anorexia, change in stool character, constipation, diarrhea, melena or rectal bleeding Genitourinary Genitourinary: Denies dysuria or hematuria Musculoskeletal Musculoskeletal: Denies abnormal gait Integumentary Integumentary: Reports other Details: ; Denies erythema, non-healing lesions or wounds Neurologic Neurologic: Denies abnormal speech, focal weakness, headache(s), loss of vision, numbness, paresthesias or sensory deficit Hematologic/Lymphatic Hematologic/Lymphatic: Denies easy bleeding, easy bruising or lymphadenopathy Vital Signs Vital Signs Vital Signs: Weight Weight: 128 lb Body Mass Index (BMI) 21.9 Assessment Plan Assessment/Plan (1) Varicose veins of leg with pain: QUALIFIERS: Laterality: left Qualified Code(s): I83.812 - Varicose veins of left lower extremity with pain PLAN: -left GSV chemical ablation 03/01/25 1016 Cosigner Signature (if applicable): CC: Dr. Betty Donnelly MD; Dr. Lopez Whiteside MD SignedWSelect [facility] Evaluation note* Diagnosis Onset Date Resolution Status Admit Date Varicose veins of leg with pain acut e December 29, 2024 3:00pm [facility] [place] Work Phone: [phone] 869-271304-11-2025 Evaluation note* Diagnosis Onset Date Resolution Status Admit Date Varicose veins of leg with pain acut e December 29, 2024 3:00pm Varicose veins of leg with pain acut e March 01, 2025 8:18am [facility] [place] Work Phone: [phone] 559-692312-23-2022 Miscellaneous Notes* Telephone Encounter - Emperatriz London LPN - 09/11/2022 8:23 AM EST Phone call placed patient advised (see prior provider encounter) Patient verbalized understanding, agreed with plan of care. Emperatriz London LPN * Telephone Encounter - So Zambrano PA-C - 09/11/2022 7:17 AM EST Please call and let patient know she tested positive for influenza A. Continue supportive care [id number] medications. If not improving over the next 3 to 5 days follow-up with PCP [facility] History of Present illness Narrative* Bryan Kamara APRN.NUBIA - 09/10/2022 7:48 AM EST Subjective HPI [...] - COVID WITH FLUA+B, ROUTINE Bryan Kamara APRN.NUBIA documented [facility] encounterMer[facility]06-[facility]-2022 History of Present illness Narrative* Linda Sellers, RT(R) - 02/18/2022 3:15 PM EDT Radiology Service [...] 18, 2022 3:26 PM documented in this encounterMer[facility]05-27-2022 Instructions* Patient Instructions* Susan Jarrell APRN.CNP - 02/13/2022 4:17 PM EDT Management of Benign Breast Pain / Fibrocystic Changes Decrease or avoid intake of caffeine, including coffee, teas, sodas, and chocolate. Decrease or avoid nicotine. Wear a support or sports (not underwire) bra. Take [id number] ibuprofen (Advil/Motrin) or other NSAIDs, such as naproxen (Aleve). Take 3 grams (3000 mg.) of evening primrose oil (available [id number]) in divided doses for 2months. Take warm showers. Use warm compresses. documented in this encounterMer[facility] Hospital05-27-2022 History of Present illness Narrative* Susan [...] L2 SAB0 IAB0 Ectopic0 Multiple0 Live Births2 Assistant Accounting Manager History LMP: 02/02/2022, Having periods Age at Menarche: Age at First : Age at Menopause: Assistant Accounting Manager History Comments: Sexual Activity: Yes; Male Contraception: [...] external genitalia normal, normal Bartholin's glands, urethra, [place]'s glands, no vulvar lesions, no cervical lesions, [...] year or sooner as needed Susan Jarrell APRN.HAND WEAVER documented in this encounterMer[facility]03-[facility] History of Past illness Narrative* Problem [...] of this encounter (statuses as of 02/13/2022) [facility] Narrative* Problem [...] of this encounter (statuses as of 02/19/2022) [facility] Narrative* Problem [...] of this encounter (statuses as of 09/11/2022) [facility] of [facility] illness Narrative* Problem [...] of this encounter (statuses as of 09/12/2022) [facility]* Diagnosis Encounter for gynecological examination (general) (routine) without abnormal findings- Primary Screening for cervical cancer Screening for malignant neoplasm of the cervix Encounter for screening for human papillomavirus (HPV) Special screening examination for human papillomavirus (HPV) Breast pain Mastodynia [facility]* Diagnosis Breast pain Mastodynia [facility]* Diagnosis Influenza-like illness- Primary Influenza with other respiratory manifestations documented in this encounter [facility] for referral (narrative)* Diagnostic Procedure Only (Routine) - Authorized Specialty Diagnoses / Procedures Referred By Contac t Referred To Contact [facility] Diagnoses Breast pain Procedures JEANNE DIAGNOSTIC LT DIAGNOSTIC MAMMOGRAPHY COMPUTER-AIDED DETCJ Susan Anne, JOSE.HAND WEAVER [address] [place] [address] [facility] [address] [place] [address] Referral ID Status Reason Start Date Expiration Date Visits Requested Visits Authorized [id number] Authorized Auto-Generat ed Referral 02/13/2022 03/15/2023 1 1 * Diagnostic Procedure Only (Routine) - Pending Review Specialty Diagnoses / Procedures Referred By Contac t Referred To Contact [facility] Diagnoses Breast pain Procedures US BREAST LTD LT US BREAST UNI REAL TIME WITH IMAGE LIMITED Susan Jarrell APRN.HAND WEAVER [address] [place] [address] [facility] [address] [place] [address] Referral ID Status Reason Start Date Expiration Date Visits Requested Visits Authorized [id number] Pending Review Auto-Generat ed Referral 02/13/2022 03/15/2023 1 1 [facility]Reason for referral (narrative)No reason for referral information availableWSelect [facility] [place] Work Phone: Reason for visit Narrative* Diagnostic Procedure Only (Routine) - Closed Specialty Diagnoses / Procedures Referred By Eze t Referred To Contact [facility] Diagnoses Breast pain Procedures JEANNE DIAGNOSTIC LT DIAGNOSTIC MAMMOGRAPHY COMPUTER-AIDED DETCJ UNI Susan Jarrell APRN.HAND WEAVER [address] [place] [address] [facility] [address] [place] [address] Referral ID Status Reason Start Date Expiration Date V isits Requested Visits Authorized [id number] Closed Auto-Generate d Referral 02/13/2022 03/15/2023 1 1 [facility] Summary Purpose Family History No Family History Records Found Relationship Condition Age at Onset Recorded Date/T patricia father Asthma Unknown mother Malignant neoplasm Unknown Disorder of thyroid Unknown Advance Directives No Advanced Directives Records Found Advance Directive Response Recorded Date/ Time Living Will No March 01, 2025 8:54am Do you have a Healthcare Power of [employer] Printing Worker? No March 01, 2025 8:54am Advance Directives No March 01 8:54am Chief Complaint and Reason for Visit Chief Complaint Admit Date Varicose Veins December 29, 2024 3:0 0pm Pain January 22, 2025 3:04pm Reason for Visit Admit Date Varicose veins of leg with pain December 292024 3:00pm Chief Complaint Admit Date Varicose Veins December 29, 2024 3:0 0pm Pain January 22, 2025 3:04pm Varicose veins of left lower extremity J une 2024 8:18am Varicose veins of left lower extremity J une 2024 10:13am Reason for Visit Admit Date Varicose veins of leg with pain December 292024 3:00pm Varicose veins of leg with pain February 8:18am Additional Source Comments Source Comments (unrecognize d section and content) In the event this informatio n is protected by the Federal Confidentiality of Alcohol and Drug Abuse Patient Records regulations: The Federal rules restrict any use of the information to criminally investigate or prosecute any alcohol or drug abuse patient.[facility] HospitalIn the event this information is protected by the Federal Confidentiality of Alcohol and Drug Abuse Patient Records regulations: The Federal rules restrict any use of the information to criminally investigate or prosecute any alcohol or drug abuse patient.[facility] HospitalIn the event this information is protected by the Federal Confidentiality of Alcohol and Drug Abuse Patient Records regulations: The Federal rules restrict any use of the information to criminally investigate or prosecute any alcohol or drug abuse patient.[facility] HospitalIn the event this information is protected by the Federal Confidentiality of Alcohol and Drug Abuse Patient Records regulations: The Federal rules restrict any use of the information to criminally investigate or prosecute any alcohol or drug abuse patient.[facility] Reason for Visit (unrecogniz ed section and content) Reason Comments Yearly Exam Reason Comments Fever Pt reported sore thr oat, cough x1 day. Reason Comments Results INFORMATION SOURCE (unrecogn ized section and content) DATE CREATED AUTHOR 02/19/2024 [facility] DATE CREATED AUTHOR AUTHOR'S ORGANIZ ATION 03/02/2025 [facility] Care Teams (unrecognized sec tion and content) [...] Provider Active S tart: January 22, 2025 Team Status: Active Member Role Status Dates Dr. Betty Donnelly MD Primary Care Provider Active Start: January 22, 2025 Dr. Lopez Whiteside MD Attending Provider Active S tart: January 22, 2025 DANGELO Oliveira Referring Provider Active Star t: January 22, 2025 Team Status: Inactive Member Role Status Dates Dr. Betty Donnelly MD Primary Care Provider Active Start: March 01, 2025 End: March 01, 2025 Dr. Lopez Whiteside MD Attending Provider Active S tart: March 01, 2025 End: March 01, 2025 Dr. Lopez Whiteside MD Referring Provider Active S tart: March 01, 2025 End: March 01, 2025 Team Status: Active Member Role Status Dates Dr. Betty Donnelly MD Primary Care Provider Active Start: March 01, 2025 Dr. Lopez Whiteside MD Attending Provider Active S tart: March 01, 2025 Dr. Lopez Whiteside MD Referring Provider Active S tart: March 01, 2025 Dr. Lopez Whiteside MD Other Provider Active Start : March 01, 2025 Goals (unrecognized section and content) Goals may be documented in a n alternate sectionGoals may be documented in an alternate section FOR RECORDS PERTAINING TO PATIENTS [...] BE BASED ON THE PRIMARY CLINICAL RECORDS. [employer] provides no warranty or guarantee of the accuracy or completeness of information in this document.
== END | disposition home or self-care (01) ==
PROVIDERS: PCP Family Medicine; Referring Provider Surgery Trauma Surgery; Visit Provider Surgery Trauma Surgery
DX: I87.2 Venous insufficiency (chronic) (peripheral) (principal); I83.819 Varicose veins of unspecified lower extremity with pain
CPT/HCPCS: 93971